=== PATIENT | male | born 1955 | race Caucasian/White ===

== ENCOUNTER 2024-12-17 10:46 | Outpatient (CLI) | payer MEDICARE, SELFPAY ==
--- OUTSIDE RECORDS SUMMARY | 2024-12-17 12:04 | XMS_ITS | Clinical Summary ---
Author Organization [facility] Address [address] [place] [address] Phone Care Team Providers Care Retail Loan Originator Name Role Phone Ace Dockery MD Primary Care Provider [phone] Allergies No known active allergies Medications pravastatin (PRAVACHOL) 40 MG Tablet Take 40 mg by mouth every evening. Active amLODIPine (NORVASC) 10 MG Tablet TAKE 1 TABLET BY MOUTH ONCE A DAY 30 Tab 6 6 Active hydroCHLOROthiaz efrain 25 MG Tablet TAKE ONE TABLET BY MOUTH ONCE DAILY 30 Tab 6 7 Active pravastatin (PRAVACHOL) 20 MG Tablet TAKE ONE TABLET BY MOUTH ONCE DAILY 30 Tab 5 7 Active Additional Information Patient not taking.Reported on 02/20/2018 glipiZIDE (GLUCOTROL) 10 MG Tablet Take 10 mg by mouth 2 times daily. 7 Active Blood Glucose Monitoring Suppl (TRUE METRIX METER) w/Device Kit 7 Active TRUE METRIX BLOOD GLUCOSE TEST Strip 7 Active RELION ULTRA THIN LANCETS 30G Misc 7 Active metFORMIN (GLUCOPHAGE-XR) 500 MG TABLET SR 24 HR Take 500 mg by mouth 2 times daily. 7 Active [place]-3 Fatty Acids (FISH OIL PO) Take 1 Tab by mouth daily. Active MAGNESIUM PO Take 1 Tab by mouth daily. Active HYDROcodone-acet aminophen (NORCO) 5-325 MG Tablet Take 1-2 Tabs by mouth every 6 hours as needed for Moderate or more severe pain. 40 Tab 8 Active ondansetron (ZOFRAN) 4 MG Tablet Take 1 Tab by mouth every 8 hours as needed for Nausea - 1st line. 10 Tab 8 Active ondansetron (ZOFRAN ODT) 4 MG TABLET DISPERSIBLE Take 1 Tab by mouth every 8 hours as needed for Nausea - 2nd line. 10 Tab 8 Active cyclobenzaprine (FLEXERIL) 5 MG Tablet 8 Active atorvastatin (LIPITOR) 40 MG Tablet 9 Active carvedilol (COREG) 25 MG Tablet 9 Active traMADol (ULTRAM) 50 MG Tablet Take 1 Tab by mouth every 8 hours as needed for Moderate or more severe pain. 20 Tab 9 Active JANUVIA 100 MG Tablet TAKE 1 TABLET BY MOUTH ONCE DAILY 0 Active acarbose (PRECOSE) 25 MG Tablet acarbose 25 mg tablet Active Active Problems Problem Noted Date Diagnosed Date Epidermoid cyst 07/23/2018 Skin tag 07/23/2018 SHAUNA (obstructive sleep apnea) 07/11/2018 Restless legs syndrome (RLS) 03/14/2018 Non morbid obesity 12/06/2017 SOB (shortness of breath) 12/06/2017 Pulmonary hypertension 12/06/2017 HTN (hypertension) Hyperlipidemia OA (osteoarthritis) Encounters Date Type Department Care Team Description 12/16/2024 8:30 AM CDT Physical Therapy [facility] [address], [address] [place] [phone] Ace Dockery MD Bogowith, Kelly A, PT Right shoulder pain, unspecified chronicity (Primary Dx) Discharge Disposition: Discharged to home or Selfcare 12/16/2024 Travel 12/13/[address] [facility] [address] [place] [phone] Shana Otto, PT Appointment 12/09/2024 11:30 AM CDT Physical Therapy [facility] [address] [place] [phone] Ace Dockery MD Young, Susan E, PT Right shoulder pain, unspecified chronicity (Primary Dx); Abnormal posture; Pain in right rhomboid muscle; Shoulder pain, unspecified chronicity, unspecified laterality Discharge Disposition: Discharged to home or Selfcare 12/09/2024 Travel 12/05/2024 3:15 PM CDT Physical Therapy [facility] [address], [address] [address] Ace Dockery MD Young, Susan E, PT Right shoulder pain, unspecified chronicity (Primary Dx); Abnormal posture; Pain in right rhomboid muscle; Shoulder pain, unspecified chronicity, unspecified laterality Discharge Disposition: Discharged to home or Selfcare 12/05/2024 Travel 12/02/2024 3:15 PM CDT Physical Therapy [facility] at [address], [address] [phone] Ace Dockery MD Young, Susan E, PT Right shoulder pain, unspecified chronicity (Primary Dx); Abnormal posture; Pain in right rhomboid muscle; Shoulder pain, unspecified chronicity, unspecified laterality Discharge Disposition: Discharged to home or Selfcare 11/29/2024 2:45 PM CDT Physical Therapy [facility] at [address] [phone] Ace Dockery MD Young, Susan E, PT Right shoulder pain, unspecified chronicity (Primary Dx); Abnormal posture Discharge Disposition: Discharged to home or Selfcare 11/29/2024 Plan of Care Documentation [facility] [address], [address] [phone] 11/29/2024 Travel 11/26/2024 Transcribe Orders [facility] [address] [place] [address] Ace Dockery MD Right shoulder pain, unspecified chronicity (Primary Dx) from Last 3 Months Family History Medical History Relation Name Comments Hypertension Father Lung Cancer Father Hypertension Mother Hypertension Sister Hypothyroidism Sister Relation Name Status Comments Father Mother Alive Sister Social History Tobacco Use Types Packs/Day Years Used Date Smoking Tobacco: Former Cigarettes 0.3 20 Cigars Smokeless Tobacco: Never Tobacco Cessation:Counseling Given: No Alcohol Use Standard Drinks/Week Comments Yes 12 (1 standard drink = 0.6 oz pu re alcohol) 3-4 drinks per evening Sexually Active Control Partners Comments Not Currently Sex and Gender Information Value Date Recorded Sex Assigned at Not on file Legal Sex Male 8:50 PM CDT Gender Identity Not on file Sexual Orientation Not on file Last Filed Vital Signs Vital Sign Reading Time Taken Comments Blood Pressure 166/92 05/26/2021 3:23 PM CDT Pulse 85 05/26/2021 3:23 PM CDT Temperature 36.4 C (97.6 F) 05/26/2021 3:23 PM CDT Respiratory Rate 18 05/26/2021 3:23 PM CDT Oxygen Saturation 99% 05/26/2021 3:23 PM CDT Inhaled Oxygen Concentration - - Weight 98.8 kg (217 lb 12.8 oz) 05/26/2021 3:23 PM CDT Height 179.1 cm (5' 10.5 ) 05/26/2021 3:23 PM CD T Body Mass Index 30.81 05/26/2021 3:23 PM CDT Plan of Treatment Upcoming Encounters Date Type Department Care Team (Late st Contact Info) Description 12/18/2024 9:15 AM CDT Physical Therapy [facility] [address] [place] [phone] Ace Dockery MD [address] [place] [address] [address] [place] [address] Francisca Snow, PT [place] 12/26/2024 11:30 AM CDT Physical Therapy [facility] [address] [place] [phone] Ace Dockery MD [address] [place] [address] [address] [place] [address] Shana Otto, PT [place] Discharge Disposition: Discharged to home or Selfcare Health Maintenance Due Date Last Done Comments Hepatitis C Virus (HCV) Screening 1955 Cologuard 02/02/2006 Immunochemical Fecal Occult Blood 02/02/2006 Pneumococcal Immunization (50+ years) (1 of 1 - PCV) 02/02/2006 Zoster Immunization (1 of 2) 02/02/2006 PSA Discussion 02/02/2011 Colonoscopy 03/05/2021 03/05/2018, 02/2018, 11/21/2017, Additional history exists Colorectal Cancer Screening 03/05/2021 Influenza Immunization (#1) 2024 SARS-COV-2 Immunization ( season) 2024 11/09/2021, 10/12/2021 Respiratory Syncytial Virus (RSV) Immunization (Adult) (1 - 1-dose 75+ series) 02/02/2031 03/05/2018, 02/2018, 11/21/2017, Additional history exists TdaP Immunization Completed 12/28/2012, 09/18/2012 Hepatitis B Immunization Aged Out No longer eligible based on patient's age to complete this topic Meningococcal Immunization (ACWY) Aged Out No longer eligible based on patient's age to complete this topic Rotavirus Immunization Aged Out No lo nger eligible based on patient's age to complete this topic Insurance MEDICARE Care Teams Retail Loan Originator Relationship Specialty Start Date End Date Ace Dockery MD [address] [place] [address] PCP - General Family Medicine 05/06/20
--- OUTSIDE RECORDS SUMMARY | 2024-12-17 12:04 | XMS_ITS | Clinical Summary ---
Author Organization [facility] Facility Address [address] [place] [id number] Care Team Providers Care Burial Vault Setter Name Role Phone Unavailable Primary Care Provider Unavailabl e Medications benazepril (LOTENSIN) 40 MG tablet TAKE 1 TABLET BY MOUTH ONCE DAILY 30 tablet 5 07/05/2019 Active carvedilol (COREG) 25 MG tablet Take 1 tablet by mouth twice daily 60 tablet 06/02/2021 Active Family History Medical History Relation Comments Cancer Child Cancer Father 2 Hypertension Father 2 Hypertension Mother 2 Hypertension Sibling Relation Status Comments Child Father 1 Father 2 Mother 1 Alive Mother 2 Sibling Social History Tobacco Use Types Packs/Day Years Used Date Smoking Tobacco: Former Alcohol Use Standard Drinks/Week Comments Yes 0 (1 standard drink = 0.6 oz pur e alcohol) Sex and Gender Information Value Date Recorded Sex Assigned at Not on file Legal Sex Male 6:09 PM EDT Gender Identity Not on file Sexual Orientation Not on file Last Filed Vital Signs Vital Sign Reading Time Taken Comments Blood Pressure 164/98 07/26/2018 11:00 AM MOLD CLEANER Pulse 93 07/26/2018 11:00 AM MOLD CLEANER Temperature - - Respiratory Rate 16 06/11/2018 11:00 AM CDT Oxygen Saturation 99% 07/26/2018 11:00 AM MOLD CLEANER Inhaled Oxygen Concentration - - Weight 101 kg (222 lb 8 oz) 07/26/2018 11:00 AM MOLD CLEANER Height 180.3 cm (5' 11 ) 07/26/2018 11:00 AM MOLD CLEANER Body Mass Index 31.03 07/26/2018 11:00 AM MOLD CLEANER Plan of Treatment Health Maintenance Due Date Last Done Comments Pneumococcal Vaccine: 65+ Ye ars (1 of 2 - PCV) 02[birth year]02/1961 Colorectal Cancer Screening: Annual FOBT 02/02/2005 Colorectal Cancer Screening: Colonoscopy 02/02/2005 Colorectal Cancer Screening: Sigmoidoscopy 02/02/2005 Diabetes: Hemoglobin A1C 12/08/2019 Diabetes: Ophthalmology Exam 12/08/2019 Diabetes: Pedal Pulse Checked 12/08/2019 Diabetes: Sensory Foot Exam 12/08/2019 Diabetes: Visual Foot Exam 12/08/2019 Influenza Vaccine (#1) 2024 Hepatitis B Vaccine Aged Out No longe r eligible based on patient's age to complete this topic
--- OUTSIDE RECORDS SUMMARY | 2024-12-17 12:04 | XMS_ITS | Data Portability ---
Author Organization [facility] Address [address] [facility] [place] [address] Care Team Providers Care Freelance Court Reporter Name Role Phone ACE MATHIS Primary Care Provider [facility] [address] Court Reporter Assessment Encounter Date Assessment Date Assessment LastModified by Organization Details LastModified Time 04/18/2024 04/18/2024 Due to increased blood pressure, spironolactone is now increased from 25 mg once daily to 25 mg BID. [email or web address] Not available 04/22/2024 23:06:35 08/21/2024 08/21/2024 There remains great confusion as to which medications pt truly has and is taking. He was recommended to RTC with all his medications in tote. [email or web address] Not available 08/24/2024 21:25:36 08/29/2024 08/29/2024 BP is elevated because pt has not yet restarted the spironolactone already rx'd. He states that he will obtain it today from his pharmacy. [email or web address] Not available 09/03/2024 06:51:28 10/10/2024 10/10/2024 Oscar Zuleta is a 69 yr old male with a PMH of type 2 diabetes and hypertension who presents today for a follow-up appointment. His BP is within normal ranges at this visit at 122/80. He is compliant with his medications. [email or web address] Not available 10/10/2024 14:13:10 Plan of Treatment Reminders Order Date Submit Date Provider Last Modified By Organization Details Last Modified Time Details Appointments None recorded. Lab surgical pathology study 2024 025 [facility], [address], [address], [place], [address], 5 13:24:19 CMP, serum or plasma 2024 025 [facility], [address], [address], [place], [address], 5 10:13:09 CBC w/ auto diff 2024 025 [facility], [address], [address], [place], [address], 5 10:13:12 lipid panel, serum 2024 025 [facility], [address], [address], [place], [address], 5 10:13:07 TSH, ultra-sensi tive, serum 2024 025 [facility], [address], [address], [place], [address], 5 10:13:10 HbA1c (hemoglobin A1c), blood 2023 024 [email or web address] In-Office Order, Internal Use Only DO Not Attach Compendium DO Not Attach Compendium, Do Not Delete/merge, [id number] 4 16:08:10 Referral ophthalmolo gist referral 2024 025 [facility], [address] [place], [address], 5 08:12:57 Procedures excision, skin tag (PROC) 2024 025 [email or web address] Not available 5 13:48:02 Surgeries None recorded. Imaging None recorded. Medication Orders amlodipine 10 mg tablet 2024 025 [facility], [address], [place], [address], 5 14:19:05 carvedilol 25 mg tablet 2024 025 [facility], [address], [place], [address], 5 14:19:10 hydrochloro thiazide 25 mg tablet 2024 025 [facility]2182 [address] [facility], [address], [place], [address], 5 20:21:53 spironolact one 25 mg tablet 2024 025 [facility], [address], [place], [address], 5 14:19:09 spironolact one 25 mg tablet 2023 024 [facility], [address], [place], [address], 4 16:01:29 Bactrim DS 800 mg-160 mg tablet 2023 025 [facility], [address], [place], [address], 5 13:58:20 spironolact one 25 mg tablet 2023 024 [facility], [address], [place], [address], 4 17:17:28 spironolact one 25 mg tablet 2023 024 [facility], [address], [place], [address], 10:38:58 Patient TargetsNo targets recorded. Patient Instructions Encounter Date Encounter Id Patient Instructions Last Modified By Organization Details Last Modified Time 04/18/2024 [id number] A healthy lifestyle: care instructions [email or web address] Not available 04/18/2024 10:38:50 learning about high blood pressure [email or web address] Not available 04/18/2024 10:38:50 08/21/2024 [id number] learning about type 2 diabetes [email or web address] Not available 08/21/2024 17:19:09 type 2 diabetes: care instructions Not available 08/21/2024 17:19:09 reduced vision: care instructions [email or web address] Not available 08/21/2024 17:17:15 learning about high blood pressure [email or web address] Not available 08/21/2024 17:17:15 high blood pressure: care instructions [email or web address] Not available 08/21/2024 17:17:15 learning about high blood pressure [email or web address] Not available 08/21/2024 17:17:15 08/29/2024 [id number] learning about type 2 diabetes [email or web address] Not available 08/29/2024 16:02:50 type 2 diabetes: care instructions [email or web address] Not available 08/29/2024 16:02:50 10/10/2024 [id number] A healthy lifestyle: care instructions [email or web address] Not available 10/10/2024 14:17:10 learning about type 2 diabetes [email or web address] Not available 10/10/2024 14:19:42 type 2 diabetes: care instructions [email or web address] Not available 10/10/2024 14:19:42 learning about high blood pressure [email or web address] Not available 10/10/2024 14:17:10 skin lesions: care instructions Not available 10/10/2024 14:24:29 11/08/2024 [id number] I was present in the clinic to discuss this patient at the time of the visit. I agree with the documented assessment and plan Lubna Erazo MD [email or web address] Not available 11/08/2024 17:00:[address] Reporter Referral for Bilateral cataracts Referring Physician: Ace Mathis, Family Medicine, Encounter Date: 10/10/2024 Results Created Date Observation Date Name Description Value Unit Range Abnormal Flag Note LastModifiedBy Organization Detail LastModifiedTime 03/18/2003/18/2024 HbA1c (hemo globi n A1c), blood HbA1c 9.4 Not Available In-Office Order Internal Use Only DO Not Attach Compendium DO Not Attach Compendium, Do Not Delete/merge, [id number] 03/18/2024 16:56:16 08/29/2008/29/2024 HbA1c (hemo globi n A1c), blood HbA1c 7.2 Not Available In-Office Order Internal Use Only DO Not Attach Compendium DO Not Attach Compendium, Do Not Delete/merge, 08/29/2024 16:08:02 10/10/1910/11/2024 LIPID PANEL cholesterol, total 150 mg/dL 100-19 9 Not Available [facility] ([facility]) [address] [place], [address], 10/11/2024 10:13:07 10/10/19 25 10/11/2024 LIPID PANEL triglyceride s 307 mg/dL 0-149 above high normal Not Available [facility] ([facility]) [address] [place], [address], 10/11/2024 10:13:07 10/10/19 25 10/11/2024 LIPID PANEL HDL cholesterol 37 mg/dL >39 below low normal Not Available [facility] ([facility]) [address] [place], [address], 10/11/2024 10:13:07 10/10/19 25 10/11/2024 LIPID PANEL VLDL cholesterol kayleigh 49 mg/dL 5-40 above high normal Not Available [facility] ([facility]) [address] [place], [address], 10/11/2024 10:13:07 10/10/19 25 10/11/2024 LIPID PANEL LDL chol calc ([facility]) 64 mg/dL 0-99 Not Available [facility] ([facility]) [address] [place], [address], 10/11/2024 10:13:07 10/10/19 25 10/11/2024 COMP. METAB OLIC PANEL (14) glucose 150 mg/dL 70-99 above high normal Not Available [facility] ([facility]) [address] [place], [address], 10/11/2024 10:13:09 10/10/19 25 10/11/2024 COMP. METAB OLIC PANEL (14) BUN 63 mg/dL 8-27 above high normal Not Available [facility] ([facility]) [address] [place], [address], 10/11/2024 10:13:09 10/10/19 25 10/11/2024 COMP. METAB OLIC PANEL (14) creatinine 2.02 mg/dL 0.76-1 .27 above high normal Not Available [facility] ([facility]) [address] [place], [address], 10/11/2024 10:13:09 10/10/19 25 10/11/2024 COMP. METAB OLIC PANEL (14) eGFR 35 mL/mi n/1.7 3 >59 below low normal Not Available [facility] ([facility]) [address] [place], [address], 10/11/2024 10:13:09 10/10/19 25 10/11/2024 COMP. METAB OLIC PANEL (14) BUN/creatini ne ratio 31 10-24 above high normal Not Available [facility] ([facility]) [address] [place], [address], 10/11/2024 10:13:09 10/10/19 25 10/11/2024 COMP. METAB OLIC PANEL (14) sodium 135 mmol/ L 134-14 4 Not Available [facility] ([facility]) [address] [place], [address], 10/11/2024 10:13:09 10/10/19 25 10/11/2024 COMP. METAB OLIC PANEL (14) potassium 5.2 mmol/ L 3.5-5. 2 Not Available [facility] ([facility]) [address] [facility], [place], [address], 10/11/2024 10:13:09 10/10/19 25 10/11/2024 COMP. METAB OLIC PANEL (14) chloride 101 mmol/ L 96-106 Not Available [facility] ([facility]) [address] [place], [address], 10/11/2024 10:13:10/10/19 25 10/11/2024 COMP. METAB OLIC PANEL (14) carbon dioxide, total 17 mmol/ L 20-29 below low normal Not Available [facility] ([facility]) [address] [place], [address], 10/11/2024 10:13:09 10/10/19 25 10/11/2024 COMP. METAB OLIC PANEL (14) calcium 9.9 mg/dL 8.6-10 .2 Not Available [facility] ([facility]) [address] [place], [address], 10/11/2024 10:13:09 10/10/19 25 10/11/2024 COMP. METAB OLIC PANEL (14) protein, total 7.6 g/dL 6.0-8. 5 Not Available [facility] ([facility]) [address] [place], [address], 10/11/2024 10:13:09 10/10/19 25 10/11/2024 COMP. METAB OLIC PANEL (14) albumin 4.2 g/dL 3.9-4. 9 Not Available [facility] ([facility]) [address] [place], [address], 10/11/2024 10:13:09 10/10/19 25 10/11/2024 COMP. METAB OLIC PANEL (14) globulin, total 3.4 g/dL 1.5-4. 5 Not Available [facility] ([facility]) [address] [place], [address], 10/11/2024 10:13:09 10/10/19 25 10/11/2024 COMP. METAB OLIC PANEL (14) bilirubin, total 0.3 mg/dL 0.0-1. 2 Not Available [facility] ([facility]) [address] [place], [address], 10/11/2024 10:13:09 10/10/19 25 10/11/2024 COMP. METAB OLIC PANEL (14) alkaline phosphatase 87 IU/L 44-121 Not Available [facility] ([facility]) [address] [place], [address], 10/11/2024 10:13:09 10/10/19 25 10/11/2024 COMP. METAB OLIC PANEL (14) AST (SGOT) 10 IU/L 0-40 Not Available [facility] ([facility]) [address] [place], [address], 10/11/2024 10:13:09 10/10/19 25 10/11/2024 COMP. METAB OLIC PANEL (14) ALT (SGPT) 13 IU/L 0-44 Not Available [facility] ([facility]) [address] [place], [address], 10/11/2024 10:13:09 10/10/19 25 10/11/2024 TSH TSH 1.750 uIU/m L 0.450- 4.500 Not Available [facility] ([facility]) [address] [facility], [place], [address], 10/11/2024 10:13:10 10/10/19 25 10/11/2024 CBC WITH DIFFE RENTI AL/PL ATELE T WBC 9.3 x10e3 /uL 3.4-10 .8 Not Available [facility] ([facility]) [address] [facility], [place], [address], 10/11/2024 10:13:11 10/10/19 25 10/11/2024 CBC WITH DIFFE RENTI AL/PL ATELE T RBC 4.49 x10e6 /uL 4.14-5 .80 Not Available [facility] ([facility]) [address] [facility], [place], [address], 10/11/2024 10:13:11 10/10/19 25 10/11/2024 CBC WITH DIFFE RENTI AL/PL ATELE T hemoglobin 13.0 g/dL 13.0-1 7.7 Not Available [facility] ([facility]) [address] [facility], [place], [address], 10/11/2024 10:13:11 10/10/19 25 10/11/2024 CBC WITH DIFFE RENTI AL/PL ATELE T hematocrit 39.1 % 37.5-5 1.0 Not Available [facility] ([facility]) [address] [place], [address], 10/11/2024 10:13:11 10/10/19 25 10/11/2024 CBC WITH DIFFE RENTI AL/PL ATELE T MCV 87 fL 79-97 Not Available [facility] ([facility]) [address] [place], [address], 10/11/2024 10:13:11 10/10/19 25 10/11/2024 CBC WITH DIFFE RENTI AL/PL ATELE T MCH 29.0 pg 26.6-3 3.0 Not Available [facility] ([facility]) [address] [place], [address], 10/11/2024 10:13:11 10/10/19 25 10/11/2024 CBC WITH DIFFE RENTI AL/PL ATELE T MCHC 33.2 g/dL 31.5-3 5.7 Not Available [facility] ([facility]) [address] [facility], [place], [address], 10/11/2024 10:13:11 10/10/19 25 10/11/2024 CBC WITH DIFFE RENTI AL/PL ATELE T RDW 12.9 % 11.6-1 5.4 Not Available [facility] ([facility]) [address] [facility], [place], [address], 10/11/2024 10:13:11 10/10/19 25 10/11/2024 CBC WITH DIFFE RENTI AL/PL ATELE T platelets 255 x10e3 /uL 150-45 0 Not Available [facility] ([facility]) [address] [facility], [place], [address], 10/11/2024 10:13:11 10/10/19 25 10/11/2024 CBC WITH DIFFE RENTI AL/PL ATELE T neutrophils 63 % notest ab. Not Available [facility] ([facility]) [address] [facility], [place], [address], 10/11/2024 10:13:11 10/10/19 25 10/11/2024 CBC WITH DIFFE RENTI AL/PL ATELE T lymphs 26 % notest ab. Not Available [facility] ([facility]) [address] [facility], [place], [address], 10/11/2024 10:13:11 10/10/19 25 10/11/2024 CBC WITH DIFFE RENTI AL/PL ATELE T monocytes 8 % notest ab. Not Available [facility] ([facility]) [address] [place], [address], 10/11/2024 10:13:11 10/10/19 25 10/11/2024 CBC WITH DIFFE RENTI AL/PL ATELE T eos 2 % notest ab. Not Available [facility] ([facility]) [address] [place], [address], 10/11/2024 10:13:11 10/10/19 25 10/11/2024 CBC WITH DIFFE RENTI AL/PL ATELE T basos 1 % notest ab. Not Available [facility] ([facility]) [address] [facility], [place], [address], 10/11/2024 10:13:11 10/10/19 25 10/11/2024 CBC WITH DIFFE RENTI AL/PL ATELE T neutrophils (absolute) 5.8 x10e3 /uL 1.4-7. 0 Not Available [facility] ([facility]) [address] [facility], [place], [address], 10/11/2024 10:13:11 10/10/19 25 10/11/2024 CBC WITH DIFFE RENTI AL/PL ATELE T lymphs (absolute) 2.5 x10e3 /uL 0.7-3. 1 Not Available [facility] ([facility]) [address] [facility], [place], [address], 10/11/2024 10:13:11 10/10/19 25 10/11/2024 CBC WITH DIFFE RENTI AL/PL ATELE T monocytes(ab solute) 0.8 x10e3 /uL 0.1-0. 9 Not Available [facility] ([facility]) [address] [facility], [place], [address], 10/11/2024 10:13:11 10/10/19 25 10/11/2024 CBC WITH DIFFE RENTI AL/PL ATELE T eos (absolute) 0.2 x10e3 /uL 0.0-0. 4 Not Available [facility] ([facility]) [address] [facility], [place], [address], 10/11/2024 10:13:11 10/10/19 25 10/11/2024 CBC WITH DIFFE RENTI AL/PL ATELE T baso (absolute) 0.1 x10e3 /uL 0.0-0. 2 Not Available [facility] ([facility]) [address] [facility], [place], [address], 10/11/2024 10:13:11 10/10/19 25 10/11/2024 CBC WITH DIFFE RENTI AL/PL ATELE T immature granulocytes 0 % notest ab. Not Available [facility] ([facility]) [address] [facility], [place], [address], 10/11/2024 10:13:11 10/10/19 25 10/11/2024 CBC WITH DIFFE RENTI AL/PL ATELE T immature grans (abs) 0.0 x10e3 /uL 0.0-0. 1 Not Available [facility] ([facility]) [address] [facility], [place], [address], 10/11/2024 10:13:11 11/08/19 25 11/14/2024 PATHO LOGY REPOR T . COMMEN T Mater ial submi tted: . PART A: thigh - LEFT MEDIA L THIGH . Modif iers: left, media l PART B: thigh - LEFT MEDIA L THIGH . Modif iers: left, media l PART C: thigh - LEFT MEDIA L THIGH . Modif iers: left, media l Not Available [facility] ([facility]) [address] [facility], [place], [address], 11/14/2024 13:24:19 11/08/1911/14/2024 PATHO LOGY REPOR T . COMMEN T Clini ngoc provi ded ICD-1 0: L91.8 Not Available [facility] ([facility]) [address] [facility], [place], [address], 11/14/2024 13:24:19 11/08/19 25 11/14/2024 PATHO LOGY REPOR T . COMMEN T Diagn osis: A. IRRIT ATED FIBRO EPITH ELIAL POLYP . B. IRRIT ATED FIBRO EPITH ELIAL POLYP . C. IRRIT ATED FIBRO EPITH ELIAL POLYP . BXS 11/14 1023 Local Not Available [facility] ([facility]) [address] [place], [address], 11/14/2024 13:24:19 11/08/19 25 11/14/2024 PATHO LOGY REPOR T . COMMEN T Winter rodriguez d: . El cao MD, [place] topat holog ist Not Available [facility] ([facility]) [address] [place], [address], 11/14/2024 13:24:19 11/08/19 25 11/14/2024 PATHO LOGY REPOR T . COMMEN T Gross descr iptio n: . 3 Conta iners , forma pema-f illed , label ed with patie nt ident ifica tion. Part A: LEFT MEDIA L THIGH : RECEI ANNAMARIE IS 1 FRAGM ENT(S ) OF WRINK LED POLYP OID BROWN SKIN TISSU E MEASU RING 0.5 X 0.4 X 0.[address]GI [facility] [facility] N IS INKED BLUE. THE SPECI MEN IS SUBMI TTED INTAC T AND SUBMI TTED IN CASSE TTE(S ) A1. Part B: LEFT MEDIA L THIGH : RECEI ANNAMARIE IS 1 FRAGM ENT(S ) OF WRINK LED POLYP OID CORNELIUS SKIN TISSU E MEASU RING 0.4 X 0.4 X 0.[address] THE [address]GI [facility] [facility] N IS INKED GREEN . THE SPECI MEN IS SUBMI TTED INTAC T AND SUBMI TTED IN CASSE TTE(S ) B1. Part C: LEFT MEDIA L THIGH : RECEI ANNAMARIE IS 1 FRAGM ENT(S ) OF WRINK LED POLYP OID CORNELIUS SKIN TISSU E MEASU RING 0.8 X 0.4 X 1.[address]GI [facility] [facility] N IS INKED BLUE. THE SPECI MEN IS BISEC ALAN AND SUBMI TTED IN CASSE TTE(S ) C1. ORT/O RT 11/12 1128 Local Not Available [facility] ([facility]) [address] [facility], [place], [address], 11/14/2024 13:24:19 11/08/19 25 11/14/2024 PATHO LOGY REPOR T . COMMEN T Patho logis t provi ded ICD-1 0: L91.9 Not Available [facility] ([facility]) [address] [facility], [place], [address], 11/14/2024 13:24:19 11/08/19 25 11/14/2024 PATHO LOGY REPOR T . COMMEN T CPT . 83697 1, 78885 2, 99192 3 Not Available [facility] ([facility]) [address] [facility], [place], [address], 11/14/2024 13:24:19 12/18/19 25 12/17/2024 imagi ng/di agnos tic resul t No observ ation record ed. [facility] [address] [place] [address], [address], 12/17/2024 12:50:19 Result Notes None recorded. Problems Name Problem SNOMED Code Status Onset Date Resolution Date Notes Provider Name and Address Organization Details Recorded Time Body mass index 25-29 - overweig 875709357 Active 2016 Francheska corado [facility] 7 00:19:59 Proteinu maria e 53666749 Active 2016 Nephro [facility] 8 01:46:07 Dizzy nereydalls 648512577 Completed 201612/08/2017 Roma corado, [place] - [facility] 8 16:41:16 Injury of shoulder region 036000303 Active 2017 Francheska [place]ado[place] [facility] 8 17:23:56 Strain of trapeziu s muscle 742029325 Completed 201702/19/2018 Franc[place] [facility] 8 07:35:57 Rotator cuff syndrome 0003476 Active 2017 Franc[place] [facility] 8 01:26:33 Pulmonar y hyperten juan manuel 99616055 Active 2017 Franches[place] [facility] 8 01:53:58 Bunion 748457136 Active 2017 Franc[place] [facility] 8 07:35:29 Pre-surg marcus testing Active 2017 Franc[place] [facility] 8 12:17:17 Adult health examinat ion Active 2017 Franc[place] [facility] 8 10:54:33 Cellulit is of finger of right hand 47765196992 228335 Completed 201809/19/2019 Franc[place] [facility] 0 09:44:04 Dog bite - wound 598901177 Completed 201809/19/2019 Francheska Bonds [place] [facility] 0 09:37:27 Conducti ve hearing loss 42025434 Active 2019 Franches[place] [facility] 0 09:41:45 Cellulit is of finger 67781063 Completed 201606/15/2017 [place] [facility] 7 22:44:51 Tubercul osis screenin g Completed 201606/15/2017 Franches[place] [facility] 06/15/201 7 22:44:47 Unexplai kalee weight loss 022656327 Completed 201608/15/2017 Removal Reason: DM Francheska corado, [place] - [facility] 7 00:18:55 Type 2 diabetes mellitus 87659971 Active 2016 neg retinopa hty. Has cataract Francheska corado, [facility] 8 01:27:18 Hypertri glycerid emia 903306385 Active 2016 Francheska corado, [place] [facility] 7 14:22:07 Foot joint pain 846507636 Completed 201608/15/2017 Removal Reason: resolved , med side effect Francheska corado, [facility] 7 00:19:06 Blurring of visual image 655877031 Completed 201612/10/2017 Saw eye doc - wnl. Francheska corado, [place] - [facility] 8 01:45:53 Essentia l hyperten juan manuel 94524611 Active 2016 Francheska corado, [place] [facility] 7 22:45:38 Problem Notes None recorded. Procedures Surgical History Date Name Laterality Status Provider Name and Address Organization Details Recorded Time Skin Tag Removal completed JARRED HEREDIA MD Attn: Accounting,[address] [place] [address], [id number], [facility] - [facility] 11/08/2024 15:46:20 8 Colonoscopy with biopsy completed Francheska Bonds [place] - [facility] 12/10/2017 01:48:33 Unlisted procedure shoulder completed India Villa [place] - [facility] 04/14/2020 10:41:37 Unlisted px foot/toes completed India Villa [place] - [facility] 04/14/2020 10:42:33 Imaging Results Imaging Date Name Status LastModified by [facility] Details LastModified Time 12/17/2024 imaging/diagn ostic result active [facility] [address] [place], [address], 12/17/2024 12:50:19 Procedure Notes None recorded. Medical Equipment None Reported. Allergies No known drug allergies Medications Name Sig Start Date Stop Date Status Note LastModified by Organization Details LastModified Time drug unknown 12/10 completed Not Available Not Available Not Available atorvasta tin 40 mg tablet TAKE 1 TABLET BY MOUTH ONCE DAILY 08/29 completed Not Available Not Available Not Available metformin 500 mg tablet Take 1 tablet twice a day by oral route with meals for 90 days. 10/16 completed on hold from ER Not Available Not Available Not Available carvedilo l 25 mg tablet Take 1 tablet twice a day by oral route for 90 days. 2024 active Not Available Not Available Not Avai lable carvedilo l 6.25 mg tablet 07/31 completed Not Available Not Available Not Available atorvasta tin 20 mg tablet Take 1 tablet every day by oral route. 11/02 completed Not Available Not Available Not Available carvedilo l 12.5 mg tablet 11/01 completed Not Available Not Available Not Available pravastat in 40 mg tablet Take 1 tablet every day by oral route as directed . 08/01 completed changed to Lipitor Not Available Not Available Not Available hydrocodo ne 5 mg-acetam inophen 325 mg tablet 05/14 completed Not Available Not Available Not Available glipizide ER 10 mg tablet, extended release 24 hr TAKE 2 TABLETS BY MOUTH ONCE DAILY active Not Available Not Available No t Available meloxicam 15 mg tablet TAKE 1 TABLET BY MOUTH ONCE DAILY FOR 15 DAYS 10/16 completed Not Available Not Available Not Available glipizide 10 mg tablet TAKE 2 TABLETS BY MOUTH TWICE DAILY BEFORE MEALS active Not Available Not Available No t Available prednison e 20 mg tablet Take 1 tablet every day by oral route. 05/14 completed Not Available Not Available Not Available Tubersol 5 tub. unit/0.1 mL intraderm al injection solution Administ er .1ml interder samir 06/15 completed placed in l forearm pt rtc in 48 hours to have read Not Available Not Available Not Available metformin 850 mg tablet Take 1 tablet 3 times a day by oral route with meals. 08/15 completed Not Available Not Available Not Available clindamyc in HCl 150 mg capsule 05/14 completed Not Available Not Available Not Available Tylenol Arthritis Pain 650 mg tablet,ex tended release Take 1 tablet every 8 hours by oral route as needed. 2017 active <2g per day Not Available Not Available Not Available acetamino phen 300 mg-codein e 30 mg tablet TAKE 1 TABLET BY MOUTH TWICE DAILY NEEDED FOR 15 DAYS active Not Available Not Available No t Available amlodipin e 5 mg tablet TAKE 1 TABLET BY MOUTH ONCE DAILY 08/23 completed Not Available Not Available Not Available sulfameth oxazole 800 mg-trimet hoprim 160 mg tablet Take 1 tablet twice a day by oral route for 14 days. 10/10 completed Not Available Not Available Not Available tramadol 50 mg tablet TAKE 1 TO 2 TABLETS BY MOUTH EVERY 6 HOURS NEEDED FOR ACUTE PAIN 02/21 completed Not Available Not Available Not Available sildenafi l 100 mg tablet TAKE 1 TABLET BY MOUTH NEEDED IN THE EVENING active Not Available Not Available No t Available spironola ctone 25 mg tablet Take 1 tablet twice a day by oral route for 90 days. 2024 active Not Available Not Available Not Avai lable meloxicam 7.5 mg tablet Take 1 tablet every day by oral route as needed for 14 days. 08/29 completed Not Available Not Available Not Available amlodipin e 10 mg tablet Take 1 tablet every day by oral route for 90 days. 2024 active Not Available Not Available Not Avai lable benzonata te 100 mg capsule TAKE 1 CAPSULE BY MOUTH THREE TIMES DAILY NEEDED FOR 10 DAYS 08/21 completed Not Available Not Available Not Available doxycycli ne monohydra te 100 mg capsule TAKE 1 CAPSULE BY MOUTH TWICE DAILY FOR 10 DAYS active Not Available Not Available No t Available cephalexi n 500 mg capsule 06/15 completed Not Available Not Available Not Available aspirin 81 mg chewable tablet Chew 1 tablet every day by oral route. active Not Available Not Available No t Available benazepri l 20 mg tablet TAKE 1 TABLET BY MOUTH ONCE DAILY 07/31 completed Increase d to 40 mg daily - Dr Arizmendi [neprho] Not Available Not Available Not Available pravastat in 20 mg tablet 06/15 completed Not Available Not Available Not Available hydrochlo rothiazid e 25 mg tablet Take 1 tablet by mouth once daily for 90 days 2024 active on hold from ER Not Available Not Available Not Available benazepri l 40 mg tablet TAKE 1 TABLET BY MOUTH DAILY 08/29 completed Not Available Not Available Not Available albuterol sulfate HFA 90 mcg/actua tion aerosol inhaler INHALE 2 PUFFS BY MOUTH 4 TIMES DAILY NEEDED active Not Available Not Available No t Available Vitamin D2 1,250 mcg (50,000 unit) capsule Take 1 capsule every week by oral route. 2022 active PRN Not Available Not Available Not Avai lable ondansetr on 4 mg disintegr ating tablet 01/21 completed Not Available Not Available Not Available metformin ER 500 mg tablet,ex tended release 24 hr TAKE 2 TABLETS BY MOUTH ONCE DAILY IN THE EVENING 11/02 completed Not Available Not Available Not Available amoxicill in 875 mg-potass ium clavulana te 125 mg tablet Take 1 tablet every 12 hours by oral route for 10 days. 05/14 completed Not Available Not Available Not Available acarbose 25 mg tablet Take 1 tablet 3 times a day by oral route for 90 days. active Not Available Not Available No t Available cyclobenz aprine 5 mg tablet TAKE 1 TABLET BY MOUTH THREE TIMES DAILY NEEDED active Not Available Not Available No t Available rosuvasta tin 20 mg tablet TAKE 1 TABLET BY MOUTH AT BEDTIME active Not Available Not Available No t Available metformin ER 1,000 mg tablet,ex tended release 24hr (osmotic) Take 2 tablets every day by oral route in the evening. 08/16 completed Not Available Not Available Not Available magnesium 08/29 completed OTC Not Available Not Available Not Available Vitamin D3 4000iu 08/21 completed daily-OK N Not Available Not Available Not Available metformin ER 500 mg 24 hr tablet,ex tended release (gastric retention ) Take 2 tablets every day by oral route in the evening. 11/02 completed Not Available Not Available Not Available Januvia 100 mg tablet TAKE 1 TABLET BY MOUTH ONCE DAILY FOR 90 DAYS 02/21 completed Not Available Not Available Not Available fenofibra te 54 mg tablet TAKE 1 TABLET BY MOUTH ONCE DAILY 07/26 completed Not Available Not Available Not Available glipizide ER 10 mg 24 hr tablet,ex tended release Take 2 tablets every day by oral route. 09/19 completed Not Available Not Available Not Available Tradjenta 5 mg tablet TAKE 1 TABLET BY MOUTH ONCE DAILY 06/05 completed Not Available Not Available Not Available OneTouch Verio test strips USE 1 STRIP TO CHECK GLUCOSE ONCE DAILY NEEDED active Not Available Not Available No t Available Invokana 300 mg tablet TAKE 1 TABLET BY MOUTH ONCE DAILY 02/25 completed Not Available Not Available Not Available Farxiga 10 mg tablet TAKE 1 TABLET BY MOUTH ONCE DAILY IN THE MORNING FOR 30 DAYS 07/26 completed Not Available Not Available Not Available Jardiance 10 mg tablet Take 1 tablet by mouth once daily active Not Available Not Available No t Available Fish Oil 1,000 mg (120 mg-180 mg) capsule Take by oral route. 03/18 completed OTC Not Available Not Available Not Available OneTouch Delica Plus Lancet 33 gauge USE TO CHECK GLUCOSE ONCE DAILY NEEDED active Not Available Not Available No t Available OneTouch Verio Reflect Meter active Not Available Not Available Not Available Ozempic 1 mg/dose (4 mg/3 mL) subcutane ous pen injector Inject 0.25 mg every week by subcutan eous route. 06/09 completed Not Available Not Available Not Available Ozempic 0.25 mg or 0.5 mg (2 mg/3 mL) subcutane ous pen injector INJECT 0.5 MG SUBCUTAN EOUSLY ONCE A WEEK active Not Available Not Available No t Available Vitals Date Recorded Body height Body mass index (BMI) Body weight Body temperature Oxygen saturation Oxygen saturation in Arterial blood by Pulse oximetry Respiratory rate Heart rate Systolic blood pressure Diastolic blood pressure Provider Name and Address Organization Details Last Updated DateTime 4 180.34 cm 29.1 kg/m2 75859.3 1 g 97.7 [degF] 97 % 97 % 16 /min 92 /min 180 mm[Hg] 119 mm[Hg] Francisca Roman MA [place] - [facility] 4 10:01:29 Date Recorded Body height Body mass index (BMI) Body weight Oxygen saturation Oxygen saturation in Arterial blood by Pulse oximetry Heart rate Respiratory rate Body temperature Systolic blood pressure Diastolic blood pressure Provider Name and Address Organization Details Last Updated DateTime 4 180.34 cm 28.3 kg/m2 13372.6 1 g 95 % 95 % 86 /min 18 /min 97.5 [degF] 151 mm[Hg] 101 mm[Hg] ERIK Moreland [facility] 4 16:57:28 Date Recorded Body height Body mass index (BMI) Body weight Oxygen saturation Oxygen saturation in Arterial blood by Pulse oximetry Heart rate Respiratory rate Body temperature Systolic blood pressure Diastolic blood pressure Provider Name and Address Organization Details Last Updated DateTime 4 180.34 cm 28.7 kg/m2 70240.8 9 g 97 % 97 % 85 /min 16 /min 97.3 [degF] 167 mm[Hg] 105 mm[Hg] India Villa MA [facility] 4 15:33:25 Date Recorded Body height Body mass index (BMI) Body weight Heart rate Respiratory rate Body temperature Systolic blood pressure Diastolic blood pressure Provider Name and Address Organization Details Last Updated DateTime 5 180.34 cm 28.9 kg/m2 20117.4 2 g 76 /min 16 /min 96 [degF] 122 mm[Hg] 80 mm[Hg] India Villa MA [facility] 5 14:02:38 Date Recorded Oxygen saturation Oxygen saturation in Arterial blood by Pulse oximetry Provider Name and Address Organization Details Last Updated DateTime 10/10/2024 92 % 92 % Ace Mathis MD Attn: Accounting,[address] [place], [address], [facility] 10/15/2024 10:32:56 Date Recorded Body height Body temperature Respiratory rate Heart rate Systolic blood pressure Diastolic blood pressure Provider Name and Address Organization Details Last Updated DateTime 5 180.34 cm 97.8 [degF] 16 /min 79 /min 165 mm[Hg] 99 mm[Hg] Ramez Hutchison MA [facility] 5 14:32:28 Social History Question Answer Notes LastModified by Organizat ion Details LastModified Time Tobacco Smoking Status Former Smoker Quit 2017 India Villa [place] null, [facility] 04/14/2020 10:39:40 Do You Have An Advance Directive? No Information not available 01/27/2021 What Is Your Level Of Alcohol Consumption? Heavy Every Day A Couple Of Cocktails None Since 08/11 [email or web address] Information not available 08/21/2024 How Many Years Have You Consumed Alcohol? 43 Information not available 01/27/2021 Are You Blind Or Do You Have Difficulty Seeing? Yes Glasses For Reading Information not available 01/27/2021 What Is Your Level Of Caffeine Consumption? Moderate 3 Cups Of Coffee 2 In The Morning And 1 In The Afternoon. Information not available 01/27/2021 In The 14 Days Before Symptom Onset, Have You Had Close Contact With A Laboratory-confi rmed COVID-19 While That Case Was Ill? No Information not available 01/27/2021 In The 14 Days Before Symptom Onset, Have You Had Close Contact With A Person Who Is Under Investigation For COVID-19 While That Person Was Ill? No Information not available 01/27/2021 Have You Been To An Area Known To Be High Risk For COVID-19? No Information not available 01/27/2021 Are You Currently Employed? Yes Information not available 01/27/2021 Are You Deaf Or Do You Have Serious Difficulty Hearing? Yes [facility]- Has Hearing Aids But Doen't Wear Them Information not available 01/27/2021 What Type Of Diet Are You Following? REGULAR Information not available 01/27/2021 Which Illicit Or Recreational Drugs Have You Used? Aby [email or web address] Information not available 05/11/2017 Do You Or Have You Ever Used E-cigarettes Or Vape? 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 Yes Information not available 01/27/2021 Do You Have A High School Diploma Or Higher Education? Yes Information not available 01/27/2021 Do You Sometimes Have To Miss Your Medical Appointments Due To Difficult Getting Transportation? No Information not available 01/27/2021 Do You Feel Unfairly Treated Due To Things Such As Race, Age, Gender, Disability Or Some Other Reason? No Information not available 01/27/2021 Do You Feel Physically And Emotionally Safe While Living At Home? Yes Information not available 01/27/2021 Do You Feel Physically And Emotionally Safe In Your Neighborhood Or Other Public Places? Yes Information not available 01/27/2021 What Was The Date Of Your Most Recent Tobacco Screening? 11/08/2024 Information not available 11/08/2024 How Many Children Do You Have? 2 Information not available 01/27/2021 What Is Your Current Pack Years? [email or web address] Information not available 01/27/2021 What Is Your Relationship Status? Single Information not available 01/27/2021 Do You Use Your Seat Belt Or Car Seat Routinely? Yes Information not available 01/27/2021 Are You Sexually Active? No Information not available 01/27/2021 Do You Have Smoke And Carbon Monoxide Detectors In Your Home? Yes Information not available 01/27/2021 At What Age Did You Start Smoking Tobacco? 21 Information not available 01/27/2021 Are You Passively Exposed To Smoke? No Information not available 01/27/2021 Do You Or Have You Ever Used Smokeless Tobacco? Never Used Smokeless Tobacco Information not available 04/14/2020 How Much Tobacco Do You Smoke? No Information not available 04/14/2020 Do You Feel Stressed (tense, Restless, Nervous, Or Anxious, Or Unable To Sleep At Night)? [id number] Information not available 01/27/2021 Do You Use Any Illicit Or Recreational Drugs? No Information not available 01/27/2021 Do You Use Sunscreen Routinely? No Information not available 01/27/2021 Has Tobacco Cessation Counseling Been Provided? No Information not available 10/10/2024 On What Date Was Tobacco Cessation Counseling Provided? 11/08/2024 Information not available 11/08/2024 Do You Or Have You Ever Used Any Other Forms Of Tobacco Or Nicotine? No Information not available 01/27/2021 Sex: Male Functional Status Question Answer Note LastModified by Organization D etails LastModified Time Are you able to care for yourself? Yes Information n ot available 01/27/2021 What is your exercise level? None Information not available 01/27/2021 Mental Status None recorded. Family History Relationship Description Onset Age of this Age Resolved Age Notes LastModified by Organization Details LastModified Time Mother Hypertensive disorder [email or web address] Not available 05/10 16:35:52 Mother Hypercholest [email or web address] Not available 05/10 16:36:21 Mother Malignant tumor of lung 90 Stage 1- Sep 2024 [email or web address] Not available 10/10/2024 14:06:02 Father Malignant tumor of lung [email or web address] Not available 2016 17:10:24 Sister Malignant tumor of ovary [email or web address] Not available 04/14 10:39:01 Notes:no new changes reporte d 01/27/21, 07/26/21, 10/12/21, 04/20/23, 06/08/23, 09/07/23, 04/03/24, 08/29/24, 11/08/24 Medical History No medical history recorded. Immunizations Vaccine Type Date Status Note Provider Nam e and Address Organization Details Recorded Time Tdap 12/28/2012 completed PROSEPR [place], [place] - [facility] 08/29/2024 08:56:18 Hep A, adult 12/28/2012 completed Francisca Romna MA null, [place] - [facility] 08/29/2024 08:56:18 COVID-19, mRNA, LNP-S, PF, 100 mcg/0.5mL dose or 50 mcg/0.25mL dose 10/12/2021 PROSPER Pat[place], [place] - [facility] 10/12/2021 16:52:00 COVID-19, mRNA, LNP-S, PF, 100 mcg/0.5mL dose or 50 mcg/0.25mL dose 11/09/2021 completed Laurita Naik MA [place], [place] - [facility] 11/09/2021 12:59:36 Tdap 09/18/2012 completed Dolly Arroyo MA [place], [place] - [facility] 05/10/2017 16:36:35 Past Encounters Encounter ID Performer Location Encounter Start Date Encounter Closed Date Diagnosis/Indication Diagnosis SNOMED-CT Code Diagnosis ICD10 Code Diagnosis Note [id number] Francheska Das ([facility]) [address] [place] [address] 05/10/2017 16:30:21 05/12/2017 10:39:21 Unexplained weight loss 364802152 R63.4 43 pounds in 5 months. I do not believe its the apple cedar. Patient never really had a PCP. Look for common malignancy , TB, DM. He did have random glucose in the 500's, 2 hours after a meal. Pt is compensati ng for the high glucose. We will wait for his A1C and blood cultures. ER if symptomati c, pt understood . Tuberculos is screening 756751821 Z11.1 TB skin test, hx of travel and hx of weight loss. Cellulitis of finger 275 60695 L03.012 Stop Keflex. Restart Bactrim. Advised on compliance . [id number] Francheska Das ([facility]) [address] [place] [address] 06/15/2017 16:24:34 06/19/2017 11:30:03 Foot joint pain 583814044 M79.672 Left first metatarsal . He is on HCTZ which is not favorable if he has gout. Exam unremarkab le today. We will check for uric acid level. Hypertriglyceridemia 302 299575 E78.1 We increased Pravastati n from 20mg daily to 40mg daily plus strict diet - he is trying to follow diabetes diet I recommende d as he declined nutritioni st referral. TG was 1100's, non-fastin g. Repeating lipid test today. Continue Pravastati n 40mg as tolerated. Type 2 layla betes mellitus 21001801 E11.29 05/23/2017: A1C of 16, UA showed trace protein, TSH wnl, CMP Na 132. Advise strict low carb/fat. 06/15/17: Pt is already on ACEI. Random glucose was 152 in clinic today. Has side effects from meds. We discussed about switching medication for less side effects, he elected to stay on the same regimen of Statin and Metformin as side effects are tolerable. He will cut down Glipizide to 20mg daily. Continue Metformin 850mg TID, Pravastati n 40mg (20mg if still has musculoske letal aches). Blurring o f visual image [id number] H53.8 Likely due to significan t drop in glucose. We are adjusting DM meds. Advised pt to have a dilated eye exam with eye doctor - he voiced understand ing. Unexplaine d weight loss 020143324 R63.4 43 pounds in 5 months. I do not believe its the apple cedar. Patient never really had a PCP. Look for common malignancy , TB, DM. He did have random glucose in the 500's, 2 hours after a meal. Pt is compensati ng for the high glucose. We will wait for his A1C and blood cultures. ER if symptomati c, pt understood . Addendum 05/23/2017 - likely due to undx diabetes. A1c of 16. HyperTG of 1158. Others wnl prelim blood cx, TSH, CMP (Na 132), CBC, UA (trace protein), PSA, CXR. Left voice mail for pt to call back to discuss about management . Essential hypertension 61115482 I10 Blood pressure wnl today. Continue same regimen. Consider cutting down Amlodipine next visit. [id number] [facility] ([facility]) [address] [place] [address] 08/15/2017 16:06:28 08/16/2017 10:53:20 Type 2 diabetes mellitus 95495453 E11.29 A1C = 16 on 05/19/2017 . Random glucose in clinic is 114 today, improved. Will switch metformin 850 TID to ER 2000mg daily. Continue glipizide 20 mg daily. We will check A1c today, Possible proteinuri a. Evaluate with microalbum inuria. Continue aspirin and statin. RTC in 1 mo. Advised patient began to see ophthalmol ogist. Body mass index 25-29 - overweight 043337597 Z68.28 continue weight gain, which could be due to his better controlled diabetes. Encouraged tighter lifestyle management . Hypertriglyceridemia 302 820832 E78.[address] referral. Triglyceri de improved from 1100 to 800 on pravastati n. Encourage patient to increase pravastati n to 40 mg total a day, add fish oil. We will check his triglyceri de today - Consider Fenofibrat e. Blurring o f visual image 559540867 H53.8 Likely due to significan t drop in glucose. We are adjusting DM meds. Advised pt to have a dilated eye exam with eye doctor - he voiced understand ing. 08/15/2017 : Advised pt again the importance of seeing eye doctor. Essential hypertension 61345550 I10 BP wnl. Continue Amlodipine , Benazepril , HCTZ. [id number] Francheska Freemanang [place] ([facility]) [address] [place] [address] 09/13/2017 16:18:41 09/19/2017 13:14:24 Type 2 diabetes mellitus 84382698 E11.29 A1C = 16 ( 7) improved to 7.2 on 08/15/2017 . Microalbum inuria pending nephrology . Pt is on Metformin ER 2000mg daily (we dec from 850mg TID). Continue aspirin and statin. Given pt glucometer to check his sugar as needed with dizzy spells. Consider lowering his Metformin (diarrhea) +/- inc Glipizide next visit. Dizzy spells 936063190 R 42 Hx suggests likely Vertigo vs. hypoglycem ia overnight. We will start with basic workup - anemia and electrolyt es. Neuro exam wnl, including cerebellum . Orthostati c neg. Urine dip: trace blood, protein 100. No ketone. Advised pt to measure his BP and glucose while feeling dizzy. Will order blood pressure kit and give him glucometer . He sitll hasn't seen eye doctor yet. Hypertriglyceridemia 302 096836 E78.[address] referral. Triglyceri de improved from 1100 to 800 on pravastati n. Pt is on Pravastati n 40mg with fish oil for one month. We will recheck TG level. Essential hypertension 77881893 I10 Blood pressure was uncontroll ed last nurse visit. Per pt, was feeling dizzy as well. BP wnl in clinic today. .Continue Amlodipine , Benazepril , HCTZ. Pt to measure BP when feeling dizzy. [id number] [facility] ([facility]) [address] [place] [address] 10/05/2017 16:35:13 10/10/2017 10:49:00 Hypertriglyceridemia 192862934 E78.1 Background : Declined nutritioni st referral. Triglyceri de improved from 1100 to 800 on pravastati n. Pt is on Pravastati n 40mg with fish oil for one month. We will recheck TG level. 10/05/2017 : TG improved to 597 in 09/13/2017 . Pt said he just started taking Pravastati n 40mg (from 20mg) about one week ago. He takes fish oil PRN, advised to take daily. We will repeat in 2-3 months. Dizzy spells 380047372 R 42 Hx suggests likely Vertigo vs. hypoglycem ia overnight. We will start with basic workup - anemia and electrolyt es. Neuro exam wnl, including cerebellum . Orthostati c neg. Urine dip: trace blood, protein 100. No ketone. Advised pt to measure his BP and glucose while feeling dizzy. Will order blood pressure kit and give him glucometer . He sitll hasn't seen eye doctor yet. 10/05/2017 : No further episodes. Still unsure etiology. Essential hypertension 61445600 I10 Blood pressure borderline . Continue Amlodipine , Benazepril , HCTZ. We will need to adjust med if BP continues to be borderline . Type 2 layla betes mellitus 19741702 E11.29 A1C = 16 ( 7) improved to 7.2 on 08/15/2017 . Microalbum inuria pending nephrology . Pt cut down to Metformin ER 500mg two tab daily. No further dizziness. Continue Glipizide 10mg 2 tab daily, Aspirin and statin. Recheck A1C 11/2017. [id number] Franc[facility] ([facility]) [address] [place] [address] 11/01/2017 16:08:38 11/09/2017 11:15:42 Injury of shoulder region 385850437 S49.92XA Less than a week. 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 Exam positive for impingemen t. We will start with conservati ve management - Flexeril And Tylenol. RTC if not better. Consider PT and imaging. Strain of trapezius muscle 399477686 S46.812A left sided. Flexeril to help with recovery. Francheska Das ([facility]) [address] [place] [address] 12/08/2017 16:06:57 12/11/2017 10:52:59 Type 2 diabetes mellitus 39998805 E11.29 A1C = 16 ( 7) improved to 7.2 on 08/15/2017 . Proteinuri a (Nephro). Eye wnl. 09/2017:Pt cut down to Metformin ER 500mg two tab daily. No further dizziness. Continue Glipizide 10mg 2 tab daily, Aspirin and statin. Recheck A1C 11/2017. 11/2017: Random glucose 150 today. Pt is not too sure if he is taking medication s as prescribed . Supposed to be on Glipizide 10mg two tab every day before meals, Metformin ER 500mg 2 tab daily. He will go home and check his med bottles. A1C printed out for him to do with his next blood test with Nephro. Essential hypertension 31313130 I10 Blood pressure borderline . Continue Amlodipine , Benazepril , HCTZ. We will need to adjust med if BP continues to be borderline . 11/2017: ACEI was supposed to be held 09/06/2017 due to SHAUN - was refilled later, not sure if pt is on it. Cr returned wnl 11/2017. Rotator cuff syndrome 41 15003 M75.102 10/2017: Less than a week. 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 Exam positive for impingemen t. We will start with conservati ve management - Flexeril And Tylenol. RTC if not better. Consider PT and imaging. 11/2017: Pain persists and affecting ADL's. Work involves mostly physical exertions. Repeat exam today - discomfort with impingemen t and also with abduction. We will start with XR shoulder and refer to PT. Hypertriglyceridemia 302 170325 E78.1 Background : Declined nutritioni st referral. Triglyceri de improved from 1100 to 800 on pravastati n. Pt is on Pravastati n 40mg with fish oil for one month. We will recheck TG level. 10/05/2017 : TG improved to 597 in 09/13/2017 . Pt said he just started taking Pravastati n 40mg (from 20mg) about one week ago. He takes fish oil PRN, advised to take daily. We will repeat in 2-3 months. 11/2017: He has not gotten fish oil. Will repeat lipid - printed out for his next blood test with Nephro. Pulmonary hypertension 21237905 I27.20 Followed by Pulmonary: Planning for PFT, CXR, ECHO, Sleep study [id number] Francheska Das 14 IM 4 [facility] [address] [place] [address] [place] [address] 02/15/2018 16:30:00 02/19/2018 10:57:13 Essential hypertension 34646690 I10 Blood pressure borderline . Continue Amlodipine , Benazepril , HCTZ. We will need to adjust med if BP continues to be borderline . 11/2017: ACEI was supposed to be held 09/06/2017 due to SHAUN - was refilled later, not sure if pt is on it. Cr returned wnl 11/2017. 01/2018: on Amlodipine , Benazepril , HCTZ 25mg. Will monitor. If persistent ly elevated, adjust meds. Bunion 229403296 M21.61 9 pain affecting ADL's. Refer to podiatry Impingemen t syndrome of shoulder region 392861797 M75.42 10/2017: Less than a week. 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 Exam positive for impingemen t. We will start with conservati ve management - Flexeril And Tylenol. RTC if not better. Consider PT and imaging. 11/2017: Pain persists and affecting ADL's. Work involves mostly physical exertions. Repeat exam today - discomfort with impingemen t and also with abduction. We will start with XR shoulder and refer to PT. 01/26/2018 : MRI left shoulder - moderate tendinosis of lateral supraspina tus and anterior infraspina tus with minimal interstiti al tearing of anterior infraspina tus. Full thickness chondromal acia along posterior glenoid with adjacent degenerati ve signal of posterior labrum. Moder OA of glenohumer al joint. OS acromial. Refer to Ortho. 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 Hypertriglyceridemia 302 991141 E78.1 Background : Declined nutritioni st referral. Triglyceri de improved from 1100 to 800 on pravastati n. Pt is on Pravastati n 40mg with fish oil for one month. We will recheck TG level. 10/05/2017 : TG improved to 597 in 09/13/2017 . Pt said he just started taking Pravastati n 40mg (from 20mg) about one week ago. He takes fish oil PRN, advised to take daily. We will repeat in 2-3 months. 11/2017: He has not gotten fish oil. Will repeat lipid - printed out for his next blood test with Nephro. 01/2018: only been on fish oil for two weeks. Pulmonary hypertension 36169658 I27.20 Followed by Pulmonary: Planning for PFT, CXR, ECHO ( Mild MVR / mild AVR, EF 60-65%, mild LVH. Mild diastolic dysfunctio n. Small pericardia l effusion), Sleep study 01/2018: Was put on CPAP, tolerating well. Sleep well. Type 2 layla betes mellitus [id number] E11.29 A1C = 16 ( 7) improved to 7.2 on 08/15/2017 . Proteinuri a (Nephro). Eye wnl. 09/2017:Pt cut down to Metformin ER 500mg two tab daily. No further dizziness. Continue Glipizide 10mg 2 tab daily, Aspirin and statin. Recheck A1C 11/2017. 11/2017: Random glucose 150 today. Pt is not too sure if he is taking medication s as prescribed . Supposed to be on Glipizide 10mg two tab every day before meals, Metformin ER 500mg 2 tab daily. He will go home and check his med bottles. A1C printed out for him to do with his next blood test with Nephro. 01/2018: A1C 6.7 - continue the same. [id number] Francheska Das 14 [address] [facility] [place] [address] 04/27/2018 09:26:59 05/09/2018 11:20:14 Essential hypertension 50237449 I10 Blood pressure borderline . Continue Amlodipine , Benazepril , HCTZ. We will need to adjust med if BP continues to be borderline . 11/2017: ACEI was supposed to be held 09/06/2017 due to SHAUN - was refilled later, not sure if pt is on it. Cr returned wnl 11/2017. 01/2018: on Amlodipine , Benazepril , HCTZ 25mg. Will monitor. If persistent ly elevated, adjust meds. 04/2018: BP borderline . Likely elevated due ot pain yesterday. Tramadol to help with post-op recovery. Continue Beazepril (inc from 20 to 40mg by Nephro), Amlodipine , HCTZ 25mg. Rotator cuff syndrome 41 76120 M75.102 10/2017: Less than a week. 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 Exam positive for impingemen t. We will start with conservati ve management - Flexeril And Tylenol. RTC if not better. Consider PT and imaging. 11/2017: Pain persists and affecting ADL's. Work involves mostly physical exertions. Repeat exam today - discomfort with impingemen t and also with abduction. We will start with XR shoulder and refer to PT. 01/26/2018 : MRI left shoulder - moderate tendinosis of lateral supraspina tus and anterior infraspina tus with minimal interstiti al tearing of anterior infraspina tus. Full thickness chondromal acia along posterior glenoid with adjacent degenerati ve signal of posterior labrum. Moder OA of glenohumer al joint. OS acromial. Refer to Ortho. 04/2018: s/p repair. Undergoing PT. Pain uncontroll ed - Tramadol. [id number] Paola Edwards ([facility]) [address] [facility] [place] [address] 06/13/2018 11:52:11 06/15/2018 10:25:01 Pyogenic granuloma 565099151 L98.0 vs atypia Skin tag [id number] L91.8 Inflamed [id number] Francheska Das 14 IM 4 [facility] [address] [place] [address] 07/31/2018 09:30:49 08/01/2018 13:51:35 Hypertriglyceridemia [id number] E78.1 Background : Declined nutritioni st referral. Triglyceri de improved from 1100 to 800 on pravastati n. Pt is on Pravastati n 40mg with fish oil for one month. We will recheck TG level. 10/05/2017 : TG improved to 597 in 09/13/2017 . Pt said he just started taking Pravastati n 40mg (from 20mg) about one week ago. He takes fish oil PRN, advised to take daily. We will repeat in 2-3 months. 11/2017: He has not gotten fish oil. Will repeat lipid - printed out for his next blood test with Nephro. 01/2018: only been on fish oil for two weeks. 07/2018: on Statin. Recheck level. Essential hypertension 75699342 I10 Blood pressure borderline . Continue Amlodipine , Benazepril , HCTZ. We will need to adjust med if BP continues to be borderline . 11/2017: ACEI was supposed to be held 09/06/2017 due to SHAUN - was refilled later, not sure if pt is on it. Cr returned wnl 11/2017. 01/2018: on Amlodipine , Benazepril , HCTZ 25mg. Will monitor. If persistent ly elevated, adjust meds. 04/2018: BP borderline . Likely elevated due ot pain yesterday. Tramadol to help with post-op recovery. Continue Beazepril (inc from 20 to 40mg by Nephro), Amlodipine , HCTZ 25mg. 07/2018: BP borderline . Nephro inc Benazepril from 20mg to 40mg, Carvedilol 6.15mg to 12.5mg. Continue the same. RTC 10/2018. Type 2 layla betes mellitus 30848269 E11.29 A1C = 16 ( 7) improved to 7.2 on 08/15/2017 . Proteinuri a (Nephro). Eye wnl. 09/2017:Pt cut down to Metformin ER 500mg two tab daily. No further dizziness. Continue Glipizide 10mg 2 tab daily, Aspirin and statin. Recheck A1C 11/2017. 11/2017: Random glucose 150 today. Pt is not too sure if he is taking medication s as prescribed . Supposed to be on Glipizide 10mg two tab every day before meals, Metformin ER 500mg 2 tab daily. He will go home and check his med bottles. A1C printed out for him to do with his next blood test with Nephro. 01/2018: A1C 6.7 - continue the same. 07/2018: . A1C was 6.2 in 05/2018. Nephro following proteinuri a. On Metformin ER 500mg 2 tab daily, Glipizide 10mg 2 tab daily Bunion [id number] M21.61 9 pain affecting ADL's. Gen sx left repaired 06/2018. Still hurting. Short term T3. Proteinuria 91486624 R80 .9 Followed by Nephro Adult heal th examination 660849130 Z00.00 Declined Flu [id number] Francheska Das 14 IM 4 [facility] [address] [place] [address] [address] 11/01/2018 09:22:10 11/01/2018 15:57:11 Hypertriglyceridemia 780384051 E78.1 Background : Declined nutritioni st referral. Triglyceri de improved from 1100 to 800 on pravastati n. Pt is on Pravastati n 40mg with fish oil for one month. We will recheck TG level. 10/05/2017 : TG improved to 597 in 09/13/2017 . Pt said he just started taking Pravastati n 40mg (from 20mg) about one week ago. He takes fish oil PRN, advised to take daily. We will repeat in 2-3 months. 11/2017: He has not gotten fish oil. Will repeat lipid - printed out for his next blood test with Nephro. 01/2018: only been on fish oil for two weeks. 07/2018: on Statin. Recheck level. Addendum: still not controlled . Switch to lipitor 20mg. Rotator cuff syndrome 41 97948 M75.102 10/2017: Less than a week. 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 Exam positive for impingemen t. We will start with conservati ve management - Flexeril And Tylenol. RTC if not better. Consider PT and imaging. 11/2017: Pain persists and affecting ADL's. Work involves mostly physical exertions. Repeat exam today - discomfort with impingemen t and also with abduction. We will start with XR shoulder and refer to PT. 01/26/2018 : MRI left shoulder - moderate tendinosis of lateral supraspina tus and anterior infraspina tus with minimal interstiti al tearing of anterior infraspina tus. Full thickness chondromal acia along posterior glenoid with adjacent degenerati ve signal of posterior labrum. Moder OA of glenohumer al joint. OS acromial. Refer to Ortho. 04/2018: s/p repair. Undergoing PT. Pain uncontroll ed - Tramadol. 05/2018: Undergoing PT. Wean down to T3. 10/2018: left shoulder worsening pain and limited ROM for past 2-3 weeks. No injuries. Steroid course. Call ortho if persist pain. Lyric 235300403 M21.61 9 pain affecting ADL's. Gen sx left repaired 06/2018. Still hurting. Short term T3. Addendum: pt will gen sx about right getting repaired. Type 2 layla betes mellitus 86948205 E11.29 A1C = 16 ( 7) improved to 7.2 on 08/15/2017 . Proteinuri a (Nephro). Eye wnl. 09/2017:Pt cut down to Metformin ER 500mg two tab daily. No further dizziness. Continue Glipizide 10mg 2 tab daily, Aspirin and statin. Recheck A1C 11/2017. 11/2017: Random glucose 150 today. Pt is not too sure if he is taking medication s as prescribed . Supposed to be on Glipizide 10mg two tab every day before meals, Metformin ER 500mg 2 tab daily. He will go home and check his med bottles. A1C printed out for him to do with his next blood test with Nephro. 01/2018: A1C 6.7 - continue the same. 07/2018: . A1C was 6.2 in 05/2018. Nephro following proteinuri a. On Metformin ER 500mg 2 tab daily, Glipizide 10mg 2 tab daily 10/2018: Pt has been on Glipizide 20mg daily and Metformin 1000mg q48hrs. (kidney concern). Check A1C today. Essential hypertension 95307887 I10 Blood pressure borderline . Continue Amlodipine , Benazepril , HCTZ. We will need to adjust med if BP continues to be borderline . 11/2017: ACEI was supposed to be held 09/06/2017 due to SHAUN - was refilled later, not sure if pt is on it. Cr returned wnl 11/2017. 01/2018: on Amlodipine , Benazepril , HCTZ 25mg. Will monitor. If persistent ly elevated, adjust meds. 04/2018: BP borderline . Likely elevated due ot pain yesterday. Tramadol to help with post-op recovery. Continue Beazepril (inc from 20 to 40mg by Nephro), Amlodipine , HCTZ 25mg. 07/2018: BP borderline . Nephro inc Benazepril from 20mg to 40mg, Carvedilol 6.15mg to 12.5mg. Continue the same. RTC 10/2018. 10/2018: BP wnl. Continue Carvedilol 25mg, Benazepril 40mg, Amlodipine 10mg, HCTZ 25mg. [id number] Francheska Das 14 IM 4 [facility] [place] [address] 12/25/2018 08:45:34 12/26/2018 10:20:33 Cellulitis of finger of right hand [id number] 3587001 L03.011 Right index - distal phalange only. Hot compress. ER if worsening. [id number] Francheska Das 14 IM 4 [facility] [place] [address] 02/20/2019 09:42:10 02/26/2019 10:22:50 Dog bite - wound [id number] T14.8XXA Monday. Neighbor's dog bit his right arm. Dog's vaccines uptodate. Dog was calm usually. Pt denies any AMS. 3 wounds appeared shallow and healed. Hx of repid worsening infection. Augmentin for ppx. Essential hypertension 37937402 I10 Blood pressure borderline . Continue Amlodipine , Benazepril , HCTZ. We will need to adjust med if BP continues to be borderline . 11/2017: ACEI was supposed to be held 09/06/2017 due to SHAUN - was refilled later, not sure if pt is on it. Cr returned wnl 11/2017. 01/2018: on Amlodipine , Benazepril , HCTZ 25mg. Will monitor. If persistent ly elevated, adjust meds. 04/2018: BP borderline . Likely elevated due ot pain yesterday. Tramadol to help with post-op recovery. Continue Beazepril (inc from 20 to 40mg by Nephro), Amlodipine , HCTZ 25mg. 07/2018: BP borderline . Nephro inc Benazepril from 20mg to 40mg, Carvedilol 6.15mg to 12.5mg. Continue the same. RTC 10/2018. 10/2018: BP wnl. Continue Carvedilol 25mg, Benazepril 40mg, Amlodipine 10mg, HCTZ 25mg. 02/2019: BP wnl today. Continue same meds. Type 2 layla marah mellitus 06293603 E11.29 A1C = 16 ( 7) improved to 7.2 on 08/15/2017 . Proteinuri a (Nephro). Eye wnl. 09/2017:Pt cut down to Metformin ER 500mg two tab daily. No further dizziness. Continue Glipizide 10mg 2 tab daily, Aspirin and statin. Recheck A1C 11/2017. 11/2017: Random glucose 150 today. Pt is not too sure if he is taking medication s as prescribed . Supposed to be on Glipizide 10mg two tab every day before meals, Metformin ER 500mg 2 tab daily. He will go home and check his med bottles. A1C printed out for him to do with his next blood test with Nephro. 01/2018: A1C 6.7 - continue the same. 07/2018: . A1C was 6.2 in 05/2018. Nephro following proteinuri a. On Metformin ER 500mg 2 tab daily, Glipizide 10mg 2 tab daily 10/2018: Pt has been on Glipizide 20mg daily and Metformin 1000mg q48hrs. (kidney concern). Check A1C today. 02/2019: Pt is taking Glipizide 20mg once daily (misunders mckenna quinonesio n). He is not not taking Metformin per nephrology 's caution on his kidneys. A1C first. Addendum: A1C 9.3 - worsening. Will inc Glipizde to 20mg BID and add Januvia for better control. Hypertriglyceridemia 302 285467 E78.1 Background : Declined nutritioni st referral. Triglyceri de improved from 1100 to 800 on pravastati n. Pt is on Pravastati n 40mg with fish oil for one month. We will recheck TG level. 10/05/2017 : TG improved to 597 in 09/13/2017 . Pt said he just started taking Pravastati n 40mg (from 20mg) about one week ago. He takes fish oil PRN, advised to take daily. We will repeat in 2-3 months. 11/2017: He has not gotten fish oil. Will repeat lipid - printed out for his next blood test with Nephro. 01/2018: only been on fish oil for two weeks. 07/2018: on Statin. Recheck level. Addendum: still not controlled . Switch to lipitor 20mg. 02/2019: Pt is currently on Lipitor 40mg.Adden dum: Lipid only slight improvemen t. Will add Fenofibrat e. [id number] Francheska Das 14 IM 4 [facility] [place] [address] 06/05/2019 09:29:13 06/17/2019 19:29:28 Type 2 diabetes mellitus 53170457 E11.29 A1C = 16 ( 7) improved to 7.2 on 08/15/2017 . Proteinuri a (Nephro). Eye wnl. 09/2017:Pt cut down to Metformin ER 500mg two tab daily. No further dizziness. Continue Glipizide 10mg 2 tab daily, Aspirin and statin. Recheck A1C 11/2017. 11/2017: Random glucose 150 today. Pt is not too sure if he is taking medication s as prescribed . Supposed to be on Glipizide 10mg two tab every day before meals, Metformin ER 500mg 2 tab daily. He will go home and check his med bottles. A1C printed out for him to do with his next blood test with Nephro. 01/2018: A1C 6.7 - continue the same. 07/2018: . A1C was 6.2 in 05/2018. Nephro following proteinuri a. On Metformin ER 500mg 2 tab daily, Glipizide 10mg 2 tab daily 10/2018: Pt has been on Glipizide 20mg daily and Metformin 1000mg q48hrs. (kidney concern). Check A1C today. 02/2019: pt is taking Glipizide 20mg once daily. Not taking Metformin. Inc glipizide to 20mg BID and add Januvia. Addendum: Januvia not covered. We can try Trajenta. 05/2019: Not sure if he is on tradjenta. He is taking Glipizide 10mg four tab once daily.Call pharmacy first to confirm his meds. Likely on Glipizide and Acarbose. Hypertriglyceridemia 302 604531 E78.1 Background : Declined nutritioni st referral. Triglyceri de improved from 1100 to 800 on pravastati n. Pt is on Pravastati n 40mg with fish oil for one month. We will recheck TG level. 10/05/2017 : TG improved to 597 in 09/13/2017 . Pt said he just started taking Pravastati n 40mg (from 20mg) about one week ago. He takes fish oil PRN, advised to take daily. We will repeat in 2-3 months. 11/2017: He has not gotten fish oil. Will repeat lipid - printed out for his next blood test with Nephro. 01/2018: only been on fish oil for two weeks. 07/2018: on Statin. Recheck level. Addendum: still not controlled . Switch to lipitor 20mg. 05/2019: On lipitor 40mgfish oilnot sure about fenofibrat e Body mass index 30+ - obesity 301803793 Z68.31 lifestyle [id number] Francheska Das 14 [address] [facility] [place] [address] 09/19/2019 08:56:10 09/20/2019 14:58:15 Hypertriglyceridemia 538036105 E78.1 Background : Declined nutritioni st referral. Triglyceri de improved from 1100 to 800 on pravastati n. Pt is on Pravastati n 40mg with fish oil for one month. We will recheck TG level. 10/05/2017 : TG improved to 597 in 09/13/2017 . Pt said he just started taking Pravastati n 40mg (from 20mg) about one week ago. He takes fish oil PRN, advised to take daily. We will repeat in 2-3 months. 11/2017: He has not gotten fish oil. Will repeat lipid - printed out for his next blood test with Nephro. 01/2018: only been on fish oil for two weeks. 07/2018: on Statin. Recheck level. Addendum: still not controlled . Switch to lipitor 20mg. 05/2019: On lipitor 40mgfish oilnot sure about fenofibrat e 09/2019: Has been on fish oil for years - once daily.On statin. Not picked up Fenofibrat e - advised to garbage pick up man and work on diet. Essential hypertension 30623671 I10 Blood pressure borderline . Continue Amlodipine , Benazepril , HCTZ. We will need to adjust med if BP continues to be borderline . 11/2017: ACEI was supposed to be held 09/06/2017 due to SHAUN - was refilled later, not sure if pt is on it. Cr returned wnl 11/2017. 01/2018: on Amlodipine , Benazepril , HCTZ 25mg. Will monitor. If persistent ly elevated, adjust meds. 04/2018: BP borderline . Likely elevated due ot pain yesterday. Tramadol to help with post-op recovery. Continue Beazepril (inc from 20 to 40mg by Nephro), Amlodipine , HCTZ 25mg. 07/2018: BP borderline . Nephro inc Benazepril from 20mg to 40mg, Carvedilol 6.15mg to 12.5mg. Continue the same. RTC 10/2018. 10/2018: BP wnl. Continue Carvedilol 25mg, Benazepril 40mg, Amlodipine 10mg, HCTZ 25mg. 02/2019: BP wnl today. Continue same meds. 09/2019: BP wnl, continue Benazepril , Carvedilol , Amlodipine , HCTZ. Bunion 069907351 M21.61 9 pain affecting ADL's. Gen sx left repaired 06/2018. Still hurting. Short term T3. Addendum: pt will gen sx about right getting repaired. 09/2019: Pt has to get his A1c < 8 to get surgery. Conductive hearing loss 30130119 H90.2 Saw ENT - conductive hearing loss, external ear / Acquired stenosis of both external ear canals, impacted cerumen b/l, tinnitus b/l Got hearing aid. Body mass index 25-29 - overweight 067868555 Z68.28 continue weight gain, which could be due to his better controlled diabetes. Encouraged tighter lifestyle management . Type 2 layla betes mellitus 02132874 E11.29 A1C = 16 (201 7) improved to 7.2 on 08/15/2017 . Proteinuri a (Nephro). Eye wnl. 09/2017:Pt cut down to Metformin ER 500mg two tab daily. No further dizziness. Continue Glipizide 10mg 2 tab daily, Aspirin and statin. Recheck A1C 11/2017. 11/2017: Random glucose 150 today. Pt is not too sure if he is taking medication s as prescribed . Supposed to be on Glipizide 10mg two tab every day before meals, Metformin ER 500mg 2 tab daily. He will go home and check his med bottles. A1C printed out for him to do with his next blood test with Nephro. 01/2018: A1C 6.7 - continue the same. 07/2018: . A1C was 6.2 in 05/2018. Nephro following proteinuri a. On Metformin ER 500mg 2 tab daily, Glipizide 10mg 2 tab daily 10/2018: Pt has been on Glipizide 20mg daily and Metformin 1000mg q48hrs. (kidney concern). Check A1C today. 02/2019: pt is taking Glipizide 20mg once daily. Not taking Metformin. Inc glipizide to 20mg BID and add Januvia. Addendum: Januvia not covered. We can try Trajenta. 05/2019: Not sure if he is on tradjenta. He is taking Glipizide 10mg four tab once daily.Call pharmacy first to confirm his meds. 09/2019: Likely on Glipizide and Acarbose based on refill. A1C 10.3 today, add Januvia. He will work on lifestyle changes - swimming. [id number] Francheska Das 14 IM [address] [facility] [address] [facility] [place] [address] 01/22/2020 08:27:45 01/23/2020 07:03:35 Adult health examination 220228560 Z00.00 Declined FluColonos copy 2018 - poor prep, small internal hemorrhoid s. Repeat in 3 years. Fiber, stool softeners Essential hypertension 58787144 I10 Blood pressure borderline . Continue Amlodipine , Benazepril , HCTZ. We will need to adjust med if BP continues to be borderline . 11/2017: ACEI was supposed to be held 09/06/2017 due to SHAUN - was refilled later, not sure if pt is on it. Cr returned wnl 11/2017. 01/2018: on Amlodipine , Benazepril , HCTZ 25mg. Will monitor. If persistent ly elevated, adjust meds. 04/2018: BP borderline . Likely elevated due ot pain yesterday. Tramadol to help with post-op recovery. Continue Beazepril (inc from 20 to 40mg by Nephro), Amlodipine , HCTZ 25mg. 07/2018: BP borderline . Nephro inc Benazepril from 20mg to 40mg, Carvedilol 6.15mg to 12.5mg. Continue the same. RTC 10/2018. 10/2018: BP wnl. Continue Carvedilol 25mg, Benazepril 40mg, Amlodipine 10mg, HCTZ 25mg. 02/2019: BP wnl today. Continue same meds. 09/2019: BP wnl, continue Benazepril , Carvedilol , Amlodipine , HCTZ. 01/2020: BP ok in 09/2019, continue the same. Type 2 layla betes mellitus 53668835 E11.29 A1C = 16 ( 7) improved to 7.2 on 08/15/2017 . Proteinuri a (Nephro). Eye wnl. 09/2017:Pt cut down to Metformin ER 500mg two tab daily. No further dizziness. Continue Glipizide 10mg 2 tab daily, Aspirin and statin. Recheck A1C 11/2017. 11/2017: Random glucose 150 today. Pt is not too sure if he is taking medication s as prescribed . Supposed to be on Glipizide 10mg two tab every day before meals, Metformin ER 500mg 2 tab daily. He will go home and check his med bottles. A1C printed out for him to do with his next blood test with Nephro. 01/2018: A1C 6.7 - continue the same. 07/2018: . A1C was 6.2 in 05/2018. Nephro following proteinuri a. On Metformin ER 500mg 2 tab daily, Glipizide 10mg 2 tab daily 10/2018: Pt has been on Glipizide 20mg daily and Metformin 1000mg q48hrs. (kidney concern). Check A1C today. 02/2019: pt is taking Glipizide 20mg once daily. Not taking Metformin. Inc glipizide to 20mg BID and add Januvia. Addendum: Januvia not covered. We can try Trajenta. 05/2019: Not sure if he is on tradjenta. He is taking Glipizide 10mg four tab once daily.Call pharmacy first to confirm his meds. 09/2019: Likely on Glipizide and Acarbose based on refill. A1C 10.3 today, add Januvia. He will work on lifestyle changes - swimming. 01/2020:A1 C was 7.7 in 11/2019 by [place] nurse per patient. Continue Glipizide, Acarbose, Januvia. Recheck A1C in 1mo. Pulmonary hypertension 75254060 I27.20 Followed by Pulmonary: Planning for PFT, CXR, ECHO (Mild MVR / mild AVR, EF 60-65%, mild LVH. Mild diastolic dysfunctio n. Small pericardia l effusion), Sleep study 01/2018: Was put on CPAP, tolerating well. Sleep well. Hypertriglyceridemia 302 889651 E78.1 Background : Declined nutritioni st referral. Triglyceri de improved from 1100 to 800 on pravastati n. Pt is on Pravastati n 40mg with fish oil for one month. We will recheck TG level. 10/05/2017 : TG improved to 597 in 09/13/2017 . Pt said he just started taking Pravastati n 40mg (from 20mg) about one week ago. He takes fish oil PRN, advised to take daily. We will repeat in 2-3 months. 11/2017: He has not gotten fish oil. Will repeat lipid - printed out for his next blood test with Nephro. 01/2018: only been on fish oil for two weeks. 07/2018: on Statin. Recheck level. Addendum: still not controlled . Switch to lipitor 20mg. 05/2019: On lipitor 40mgfish oilnot sure about fenofibrat e 09/2019: Has been on fish oil for years - once daily.On statin. Not picked up Fenofibrat e - advised to garbage pick up man and work on diet. 01/2020: Per refill history, he is taking fenofibrat e and statin. Bunion 868935451 M21.61 9 pain affecting ADL's. Gen sx left repaired 06/2018. Still hurting. Short term T3. Addendum: pt will gen sx about right getting repaired. 09/2019: Pt has to get his A1c < 8 to get surgery. 01/2020: A1C was 7.7 in 11/2019 by [place] nurse per patient. Pt will call podiatry for surgery Rotator cuff syndrome 41 93845 M75.102 10/2017: Less than a week. 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 Exam positive for impingemen t. We will start with conservati ve management - Flexeril And Tylenol. RTC if not better. Consider PT and imaging. 11/2017: Pain persists and affecting ADL's. Work involves mostly physical exertions. Repeat exam today - discomfort with impingemen t and also with abduction. We will start with XR shoulder and refer to PT. 01/26/2018 : MRI left shoulder - moderate tendinosis of lateral supraspina tus and anterior infraspina tus with minimal interstiti al tearing of anterior infraspina tus. Full thickness chondromal acia along posterior glenoid with adjacent degenerati ve signal of posterior labrum. Moder OA of glenohumer al joint. OS acromial. Refer to Ortho. 04/2018: s/p repair. Undergoing PT. Pain uncontroll ed - Tramadol. 05/2018: Undergoing PT. Wean down to T3. 10/2018: left shoulder worsening pain and limited ROM for past 2-3 weeks. No injuries. Steroid course. Call ortho if persist pain. [id number] MD Pippa Salas 14 IM 4 [facility] [address] [place] [address] 04/14/2020 08:51:13 04/16/2020 14:11:42 Type 2 diabetes mellitus 55024523 E11.9 recent HgbA1c was 10.8 on March 26, 2020 Essential hypertension 14940528 I10 Obesity 817854988 E66.9 Under care of customer service security officer [id number] Z76.[address] Arizmendi [id number] MD Pippa Salas 14 IM 4 [facility] [address] [place] [address] [address] 01/27/2021 10:50:00 01/29/2021 14:29:51 Pain in hallux 520193550 M79.671 Type 2 layla betes mellitus 93242384 E11.9 recent HgbA1c was 7.6 Lesion of skin of face [id number] 06 L98.9 Under care of customer service security officer [id number] Z76.[address] Arizmendi Screening for malignant neoplasm of colon 490837586 Z12.11 pt is due for another colonoscop y as of Obesity 377385827 E66.9 Essential hypertension 49793093 I10 [id number] MD Pippa Salas 14 IM 4 [facility] [place] [address] 07/26/2021 09:54:12 07/30/2021 13:59:58 Type 2 diabetes mellitus 59553505 E11.9 Essential hypertension 68275088 I10 Ex-smoker 1268288 Z87.89 1 Secondary erectile dysfunction 147842698 N52.39 [id number] MD Pippa Salas 14 IM 4 [facility] [place] [address] 10/12/2021 10:03:29 10/13/2021 13:47:54 Type 2 diabetes mellitus 67437454 E11.9 Pt had been forgetting to take the evening dose of metformin but now is improving. Insomnia 646430712 G47.0 0 Dyspnea 019341886 R06.00 Essential hypertension 83666252 I10 Vitamin D deficiency 347 29489 E55.9 Ex-smoker 9074962 Z87.89 1 more than six years ago now [id number] DASHAWN Calix 14 IM 4 [facility] [place] [address] 10/12/2021 10:06:41 10/13/2021 23:43:40 Administration of SARS-CoV-2 mRNA vaccine 7208936070 Z23 [id number] DASHAWN Calix 14 IM 4 [facility] [place] [address] 11/09/2021 11:08:59 11/10/2021 13:36:59 Administration of SARS-CoV-2 mRNA vaccine 9427399055 Z23 [id number] MD Pippa Salas 14 IM 4 [facility] [place] [address] 02/21/2022 15:05:57 02/22/2022 13:49:30 Type 2 diabetes mellitus without complication 199599063 E11.9 Rotator cuff syndrome 41 54557 M75.81 Essential hypertension 13087239 I10 [id number] MD Pippa Salas 14 IM 4 [facility] [place] [address] 04/20/2023 15:36:14 04/24/2023 12:44:50 Type 2 diabetes mellitus 08636835 E11.9 Noncomplia nce with treatment 1897781 Z91.199 Screening for malignant neoplasm of prostate 925298099 Z12.5 [id number] MD Pippa Salas 14 IM 4 [facility] [place] [address] 06/08/2023 14:55:54 06/09/2023 14:38:51 Overweight 133200929 E66.3 Type 2 layla betes mellitus 07652496 E11.9 Screening for malignant neoplasm of prostate 702193106 Z12.5 Essential hypertension 15580144 I10 [id number] MD Pippa Salas 14 IM 4 [facility] [place] [address] 09/07/2023 13:43:03 09/12/2023 08:54:18 Obesity 377671734 E66.9 Type 2 layla betes mellitus 24417045 E11.9 HgbA1c continues to improve! Vitamin D deficiency 347 20593 E55.9 Low back pain 518083629 M54.50 [id number] [facility] [place] [address] 03/18/2024 16:36:30 04/22/2024 13:04:43 Scapulalgia 04848425 M25.519 -Patient reports pain with flexion, extension, and abduction of right shoulder join. Spasticity of right trapezius noted on exam. -Patient has been taking 2 650mg tylenol and T#3 at the same time. Patient has also been taking cyclobenza isac 3 pills at once. 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 BATTERY VENT PLUG INSERTER advised patient to avoid any other NSAID therapy while on meloxicam. BATTERY VENT PLUG INSERTER discussed risks of NSAID therapy including gastritis, CKD, and hypertensi on.-Patien t agreeable to PT-Patient declined x ray of shoulder.- Patient to follow up with Dr. Mathis for further care.-BATTERY VENT PLUG INSERTER provided instructio nal handouts on shoulder pain to the patient. Type 2 layla betes mellitus 52916290 E11.9 -A1c: 9.4% (03/18/24)-P atient reports he has not been taking ozempic consistent ly. Patient reports he recently refilled.- Patient reports he is taking jardiance 10mg daily, glipizide ER 20mg daily-Ashleigh ent reports metformin is on hold.-Ashleigh ent declined adjustment in medication therapy.-P atient to follow up with Dr. Mathis April 03-Recom mended diabetic diet-Educa alan to check feet daily. [id number] MD Pippa Salas 14 IM 4 [facility] [place] [address] 04/03/2024 09:48:42 04/08/2024 11:34:30 Essential hypertension 55829932 I10 Scapulalgia 26681740 M25 .519 Type 2 layla betes mellitus 19496633 E11.9 Pt restarted ozempic in February 2024 [id number] MD Pippa Salas 14 IM 4 [facility] [place] [address] 04/18/2024 09:50:04 04/23/2024 10:38:53 Overweight 257829332 E66.3 Essential hypertension 60528597 I10 [id number] MD Pippa Salas 14 IM 4 [facility] [place] [address] 08/21/2024 16:37:24 08/27/2024 09:53:23 Essential hypertension 44653199 I10 Visual impairment 079977 003 H54.7 Benign ess ential hypertension 6708631 I10 Type 2 layla betes mellitus 03514303 E11.9 Pt restarted ozempic in February 2024 Pilonidal abscess 674444 008 L05.01 [id number] MD Pippa Salas 14 IM 4 [facility] [place] [address] 08/29/2024 15:05:50 09/04/2024 13:44:40 Benign essential hypertension 4318487 I10 Type 2 layla betes mellitus 30742626 E11.9 Pt restarted ozempic in February 2024; HgbA1c continues to improve, now at 7.2! [id number] MD Pippa Salas 14 IM 4 [facility] [place] [address] 10/10/2024 13:50:26 10/15/2024 14:21:42 Overweight 250729988 E66.3 BMI=28.9 Essential hypertension 69090414 I10 Type 2 layla betes mellitus 67025113 E11.9 Bilateral cataracts 9572 2003 H26.9 Skin lesion 89808279 L98 .9 [id number] MD Pippa Mcmahan 14 IM 4 [facility] [place] [address] 11/08/2024 14:12:41 11/11/2024 14:51:07 Multiple skin tags 669319496 L91.8 69 y/o male w/ 3 skin tags located on medial left thigh. Skin tags were excised and collected for pathology. No complicati ons during procedure. Plan: Follow up in 2 weeks to evaluate for healing and review pathology reports Health Concerns Section Related Observation LastModified by Organization Detai ls LastModified Time None Recorded Concern Status LastModified by Organization Details LastModified Time None Recorded Advance Directives Directive N: Payers Encounter Date Sequence Insurance Name Policy Number Policy Wheat Covered Member ID Wheat Member ID Guarantor Name 04/18/2024 2 [place] Piero Zuleta [id number] Piero [place] 08/29/2024 2 [place] Zuleta [id number] Piero [place] 10/10/2024 2 [place] Zuleta [id number] 9 Piero [place] 11/08/2024 2 [place] Zuleta [id number] 9 Piero [place]s Notes Date Note Type Note Provider Name and Address Organization Details Recorded Time 04/18/2024 text/html Pt presents for followup to elevated blood pressure. Ace Mathis MD Attn: Accounting,[address] [facility], [place], [address], [facility] 04/22/2024 23:07:46 08/21/2024 text/html Pt presents afte r a recent ER visit. He remains a poor historian, and it is not clear which medications he is taking. The ER physician gave him the recommendation to stop certain medications but that recommendation was based upon a patient list of medications that was not UTD. Ace Mathis MD Attn: Accounting,[address] [facility], [place], [address], [place] [facility] 08/24/2024 21:26:15 08/29/2024 text/html Per intake note, pt presents with the goal of clarifying which medications that he should take. Ace Mathis MD Attn: Accounting,[address] [facility], [place], [address], [facility] 09/03/2024 06:53:26 10/10/2024 text/html Oscar Zuleta is a 69 yr old male with a PMH of type 2 diabetes and hypertension who presents today for a follow-up appointment. His BP is within normal ranges at this visit at 122/80. He is compliant with his medications. Ace Mathis MD Attn: Accounting,[address] [facility], [place], [address], [facility] 10/15/2024 10:33:30 11/08/2024 text/html 69 y/o male w/ h x of skin tags on his medial left thigh and back of his neck. Today, the pt is unable to find the skin tag on the back of his neck. He reported using a home remedy for this lesion. He continues to have 3 skin tags on his left medial thigh. The lesions are not painful but the pt wants them removed for cosmetic concerns. Lubna Erazo MD Attn: Accounting,[address] [facility], [place], [address], [facility] 11/08/2024 17:05:42
--- OUTSIDE RECORDS SUMMARY | 2024-12-17 12:04 | XMS_ITS | Clinical Summary ---
Author Organization [facility] Address [address] [place] [address] Care Team Providers Care Graphic Arts Instructor Name Role Phone Ace Dockery MD Primary Care Provider [phone] Allergies No known active allergies Medications amLODIPine (NORVASC) 5 mg tabletIndication s:hypertension Take 1 tablet (5 mg total) by mouth daily 60 tablet 08/02/2024 Active Social History Tobacco Use Types Packs/Day Years Used Date Smoking Tobacco: Never Assessed Personal Safety Answer Date Recorded Have you ever been in or are you currently in a harmful physical or emotional relationship or is someone making you feel afraid or unsafe? Denies 08/02/2024 Sex and Gender Information Value Date Recorded Sex Assigned at Not on file Legal Sex Male 3:27 AM GRAIN UNLOADER MACHINE Gender Identity Not on file Sexual Orientation Not on file Last Filed Vital Signs Vital Sign Reading Time Taken Comments Blood Pressure 112/71 08/02/2024 10:45 PM GRAIN UNLOADER MACHINE Pulse 71 08/02/2024 10:45 PM GRAIN UNLOADER MACHINE Temperature 36.6 C (97.9 F) 08/02/2024 6:00 PM GRAIN UNLOADER MACHINE Respiratory Rate 16 08/02/2024 10:45 PM GRAIN UNLOADER MACHINE Oxygen Saturation 100% 08/02/2024 10:45 PM GRAIN UNLOADER MACHINE Inhaled Oxygen Concentration - - Weight 89.8 kg (198 lb) 08/02/2024 12:49 PM GRAIN UNLOADER MACHINE Height 180.3 cm (5' 11 ) 08/02/2024 12:49 PM GRAIN UNLOADER MACHINE Body Mass Index 27.62 08/02/2024 12:49 PM GRAIN UNLOADER MACHINE Plan of Treatment Health Maintenance Due Date Last Done Comments Colon Cancer Screening-Colonoscopy 1955 Depression Screening 1955 Fall Risk Assessment 1955 Hepatitis C Screening 1955 Hepatitis B Screening 02/02/1974 Pneumococcal vaccine 65+ (1 of 1 - PCV) 02/02/2006 Zoster Vaccine (1 of 2) 02/02/2006 Prostate Cancer Screening-PSA 05/19/2019 05/19/2017 Well Visit 65+ 02/02/2021 DTaP/Tdap/Td Vaccine (3 - Td or Tdap) 12/28/202208/2013, 09/18/2012 Covid-19 Vaccine (3 - season) 2024, 10/12/2021 Influenza Vaccine (#1) 2024 Abdominal Aortic Aneurysm (AAA) Screen Completed Procedures Procedure Name Priority Date/Time Associated Diagnosis Comments CT CHEST ABDOMEN PELVIS WO CONTRAST ED 08/02/2024 10:28 PM GRAIN UNLOADER MACHINE PSA SCREEN New Adm-Reg 05/19/2017 2:53 PM CDT from Last 3 Months or Most Recently Relevant to Health Maintenance Results * CT Chest Abdomen Pelvis WO Contrast (08/02/2024 10:28 PM GRAIN UNLOADER MACHINE) Anatomical Region Laterality Modality Body N/A Computed Tomogra phy 08/02/2024 10:4 8 PM GRAIN UNLOADER MACHINE Narrative 08/02/2024 11:09 PM GRAIN UNLOADER MACHINE EXAM DESCRIPTION: CT HEAD WO CONTRAST; CT CHEST ABDOMEN PELVIS WO CONTRAST REASON FOR STUDY: Headache, no red flags complaint of vision problems x 3 weeks. States he cannot see well. Hx Diabetic. ; Weight loss, unintended complaint of vision problems x 3 weeks. States he cannot see well. Hx Diabetic. Generalized weakness, unintended weight loss unknown amount TECHNIQUE: Axial images acquired through the brain without intravenous contrast. Images stored on PACS. Automated exposure control was used as a dose optimization technique for this examination. Axial images acquired through the chest, abdomen, and pelvis without intravenous contrast. Images stored on PACS. Automated exposure control was used as a dose optimization technique for this examination. COMPARISON: None available FINDINGS: Head: BRAIN: No hemorrhage, edema or mass effect. No recent infarct. Nonspecific periventricular and subcortical white matter hypoattenuation which can be seen as sequela of chronic small vessel ischemic disease. There is mild age-appropriate cerebral volume loss. No acute intraventricular hemorrhage. Basal cisterns are patent. There is mild age-appropriate cerebellar volume loss. No midline shift. EXTRA-AXIAL SPACES: No fluid collections. No masses. CALVARIUM: No fracture. SINUSES/MASTOIDS: Mucosal thickening of the ethmoid air cells and bilateral maxillary sinuses. Otherwise, no fluid or mucosal thickening. ORBITS: No significant abnormality. OTHER: No other significant abnormality. Chest, abdomen, and pelvis: No supraclavicular, axillary, mediastinal, or hilar lymphadenopathy. Imaged portions of the thyroid gland are normal. There is no aortic aneurysm. There is normal size of the main pulmonary arteries. Heart size is normal. Small volume pericardial fluid is present. Coronary artery atherosclerotic calcifications are present. The esophagus is within normal limits. No pneumomediastinum or mediastinal hematoma. No pleural effusion or pneumothorax. Mild scattered bilateral pulmonary parenchymal scarring as well as subsegmental atelectasis in both lungs. No pulmonary parenchymal consolidation or pulmonary edema. The tracheobronchial tree is within normal limits. Left upper lobe calcified granuloma. The liver is normal in size. No discrete focal hepatic lesions on this noncontrast CT study. The gallbladder is normal. No intra or extrahepatic biliary ductal dilatation. Calcified splenic granulomas. The spleen is normal in size. No discrete focal splenic lesions. Pancreas is normal. The adrenal glands are normal. No discrete focal renal lesions. No hydronephrosis or hydroureter. No calculi within the urinary tract. The urinary bladder is normal. Mild enlargement of the prostate gland with parenchymal calcifications. The stomach is normal. The small bowel and colon are normal in course and caliber with no evidence of obstruction or inflammation. Colonic diverticulosis. No CT evidence of acute diverticulitis. The appendix is normal. No lymphadenopathy. No free fluid or free air. Atherosclerotic calcifications of the abdominal aorta and its branches. No aneurysm. Bone windows demonstrate no acute fractures or aggressive osseous lesions. IMPRESSION: 1. No acute intracranial findings. 2. No pulmonary parenchymal consolidation. No lung masses. No intrathoracic lymphadenopathy. 3. Colonic diverticulosis. No CT evidence of acute diverticulitis. THIS IS AN ELECTRONICALLY VERIFIED FINAL REPORT 08/02/2024 11:09 PM - Electronically signed by Leland Thomson M.D. AT: AT Report ID: [id number] Reading Location: [id number] Procedure Note Leland Thomson MD - 08/02/2024 EXAM DESCRIPTION: CT HEAD WO CONTRAST; CT CHEST ABDOMEN PELVIS WO CONTRAST REASON FOR STUDY: Headache, no red flags complaint of vision problems x 3 weeks. States he cannot see well. Hx Diabetic. ; Weight loss, unintended complaint of vision problems x 3 weeks. States he cannot see well. Hx Diabetic. Generalized weakness, unintended weight loss unknown amount TECHNIQUE: Axial images acquired through the brain without intravenous contrast. Images stored on PACS. Automated exposure control was used asa dose optimization technique for this examination. Axial images acquired through the chest, abdomen, and pelvis without intravenous contrast. Images stored on PACS. Automated exposure controlwas used as a dose optimization technique for this examination. COMPARISON: None available FINDINGS: Head: BRAIN: No hemorrhage, edema or mass effect. No recent infarct.Nonspecific periventricular and subcortical white matter hypoattenuation which can beseen as sequela of chronic small vessel ischemic disease. There is mild age-appropriate cerebral volume loss. No acute intraventricularhemorrhage. Basal cisterns are patent. There is mild age-appropriate cerebellarvolume loss. No midline shift. EXTRA-AXIAL SPACES: No fluid collections. No masses. CALVARIUM: No fracture. SINUSES/MASTOIDS: Mucosal thickening of the ethmoid air cells andbilateral maxillary sinuses. Otherwise, no fluid or mucosal thickening. ORBITS: No significant abnormality. OTHER: No other significant abnormality. Chest, abdomen, and pelvis: No supraclavicular, axillary, mediastinal, or hilar lymphadenopathy. Imaged portions of the thyroid gland are normal. There is no aortic aneurysm. There is normal size of the main pulmonary arteries. Heart size is normal. Small volume pericardial fluid is present.Coronary artery atherosclerotic calcifications are present. The esophagus iswithin normal limits. No pneumomediastinum or mediastinal hematoma. No pleural effusion or pneumothorax. Mild scattered bilateral pulmonary parenchymal scarring as well as subsegmental atelectasis in both lungs. No pulmonary parenchymal consolidation or pulmonary edema. The tracheobronchial tree is withinnormal limits. Left upper lobe calcified granuloma. The liver is normal in size. No discrete focal hepatic lesions on this noncontrast CT study. The gallbladder is normal. No intra orextrahepatic biliary ductal dilatation. Calcified splenic granulomas. The spleen is normal in size. No discrete focal splenic lesions. Pancreas is normal. The adrenal glands arenormal. No discrete focal renal lesions. No hydronephrosis or hydroureter. No calculi within the urinary tract. The urinary bladder is normal. Mild enlargement of the prostate gland with parenchymal calcifications. The stomach is normal. The small bowel and colon are normal in course and caliber with no evidence of obstruction or inflammation. Colonic diverticulosis. No CT evidence of acute diverticulitis. The appendix is normal. No lymphadenopathy. No free fluid or free air. Atherosclerotic calcifications of the abdominal aorta and its branches.No aneurysm. Bone windows demonstrate no acute fractures or aggressive osseous lesions. IMPRESSION: 1. No acute intracranial findings. 2. No pulmonary parenchymal consolidation. No lung masses. Nointrathoracic lymphadenopathy. 3. Colonic diverticulosis. No CT evidence of acute diverticulitis. THIS IS AN ELECTRONICALLY VERIFIED FINAL REPORT 08/02/2024 11:09 PM - Electronically signed by Leland Thomson M.D. AT: AT Report ID: [id number] Reading Location: [place] [address] Rich Romero MD IMG CT PROCEDURES Final Res ult * PSA screen (05/19/2017 2:53 PM CDT) PSA-Total 1.11 0.10 - 4.00 ng/mL ALEXA NICOLE ([place]) Blood specimen (specimen) 05/19/2017 2:53 PM CDT 05/19/2017 6:50 PM CDT Francheska Bonds MD LAB BLOOD ORDERABLES Final Resul t ALEXA NICOLE ([place]) 1 [facility] [place] [address] from Last 3 Months or Most Recently Relevant to Health Maintenance Insurance [facility] OTHER Address: [address] [address] MEDICARE [facility] MEDICARE Care Teams Graphic Arts Instructor Relationship Specialty Start Date End Date Ace Dockery MD [address] [facility] [address] [facility] [address] [place] [address] PCP - General Family Medicine 08/02/24
--- OUTSIDE RECORDS SUMMARY | 2024-12-17 12:04 | XMS_ITS | Referral Summary ---
Author Organization [facility] Address [address] [place] [address] Care Team Providers Care Accounts Receivable Administrator Name Role Phone Ace Dockery MD Primary Care Provider [phone] Allergies No known active allergies Medications amLODIPine [...] on file Legal Sex Male 3:27 AM SEAMLESS TUBE ROLLER Gender Identity Not on file Sexual Orientation Not on file Last Filed Vital Signs Vital Sign Reading Time Taken Comments Blood Pressure 112/71 08/02/2024 10:45 PM SEAMLESS TUBE ROLLER Pulse 71 08/02/2024 10:45 PM SEAMLESS TUBE ROLLER Temperature 36.6 C (97.9 F) 08/02/2024 6:00 PM SEAMLESS TUBE ROLLER Respiratory Rate 16 08/02/2024 10:45 PM SEAMLESS TUBE ROLLER Oxygen Saturation 100% 08/02/2024 10:45 PM SEAMLESS TUBE ROLLER Inhaled Oxygen Concentration - - Weight 89.8 kg (198 lb) 08/02/2024 12:49 PM SEAMLESS TUBE ROLLER Height 180.3 cm (5' 11 ) 08/02/2024 12:49 PM SEAMLESS TUBE ROLLER Body Mass Index 27.62 08/02/2024 12:49 PM SEAMLESS TUBE ROLLER Plan of Treatment Not on file Procedures Procedure Name Priority Date/Time Associated Diagnosis Comments CT CHEST ABDOMEN PELVIS WO CONTRAST ED 08/02/2024 10:28 PM SEAMLESS TUBE ROLLER PSA SCREEN New Adm-Reg 05/19/2017 2:53 PM CDT from Last 3 Months or Most Recently Relevant to Health Maintenance Results * CT Chest Abdomen Pelvis WO Contrast (08/02/2024 10:28 PM SEAMLESS TUBE ROLLER) Anatomical Region Laterality Modality Body N/A Computed Tomogra phy 08/02/2024 10:4 8 PM SEAMLESS TUBE ROLLER Narrative 08/02/2024 11:09 PM SEAMLESS TUBE ROLLER EXAM DESCRIPTION: CT HEAD WO CONTRAST; CT [...] Leland Thomson M.D. AT: AT Report ID: [id number] Reading Location: [id number] Procedure Note Leland Thomson MD - 08/02/2024 [...] Leland Thomson M.D. AT: AT Report ID: [id number] Reading Location: [id number] [place] Rich Romero MD IMG CT PROCEDURES Final Res ult * PSA screen (05/19/2017 2:53 PM CDT) PSA-Total 1.11 0.10 - 4.00 ng/mL ALEXA NICOLE ([place]) Blood specimen (specimen) 05/19/2017 2:53 PM CDT 05/19/2017 6:50 PM CDT us Francheska Bonds MD LAB BLOOD ORDERABLES Final Resul t ALEXA NICOLE ([place]) 1 [facility] Department [place] [address] from Last 3 Months or Most Recently Relevant to Health Maintenance Insurance [facility] MEDICARE [facility] MEDICARE Care Teams Accounts Receivable Administrator Relationship Specialty Start Date End Date Ace Dockery MD [address] [place] [address] [address] [address] PCP - General Family Medicine 08/02/24
--- OUTSIDE RECORDS SUMMARY | 2024-12-17 12:04 | XMS_ITS | Encounter Summary ---
Author Organization [facility] Care Team Providers Care Custom Shoemaker Name Role Phone Ace Dockery MD Primary Care Provider [phone] Encounter Details Date Type Department Care Team (Latest Contact Info) Description 12/16/2024 Travel Social History Tobacco Use Types Packs/Day Years Used Date Smoking Tobacco: Former Cigarettes 0.3 20 Cigars Smokeless Tobacco: Never Alcohol Use Standard Drinks/Week Comments Yes 12 (1 standard drink = 0.6 oz pu re alcohol) 3-4 drinks per evening Sexually Active Control Partners Comments Not Currently Sex and Gender Information Value Date Recorded Sex Assigned at Not on file Legal Sex Male 8:50 PM CDT Gender Identity Not on file Sexual Orientation Not on file documented as of this encounter Plan of Treatment Upcoming Encounters Date Type Department Care Team (Late st Contact Info) Description 12/18/2024 9:15 AM CDT Physical Therapy [facility] [address] [place] [id number] Ace Dockery MD [address] [facility] [address] [place] [address] Francisca Snow, PT [place] 12/26/2024 11:30 AM CDT Physical Therapy [facility] [address] [place] [address] Ace Dockery MD [address] [facility] [address] [place] [address] Shana Otto, PT [place] Discharge Disposition: Discharged to home or Selfcare documented as of this encounter Visit Diagnoses Not on filedocumented in this encounter Care Teams Custom Shoemaker Relationship Specialty Start Date End Date Ace Dockery MD [address] [facility] [address] [place] [address] PCP - General Family Medicine 05/06/20 documented as of this encounter
--- OUTSIDE RECORDS SUMMARY | 2024-12-17 12:04 | XMS_ITS | Encounter Summary ---
Author Organization [facility] Address [address] [place] [address] Phone Care Team Providers Care Log Clerk Name Role Phone Ace Dockery MD Primary Care Provider [phone] Reason for Visit * PT/OT/ST (Routine) - Authorized Specialty Diagnoses / Procedures Referred By Contac t Referred To Contact Physical Therapy Diagnoses Right shoulder pain, unspecified chronicity Ace Dockery MD [address] [place] [address] [place] [address] Phone: tel: fax: [facility] at [facility] [address], [address] [place] [address] Phone: tel: fax: Referral ID Status Reason Start Date Expiration Date V isits Requested Visits Authorized [id number] Authorized 11/26/2024 50 50 Encounter Details Date Type Department Care Team (Late st Contact Info) Description 12/16/2024 8:30 AM CDT Physical Therapy [facility] [address], [address] [place] [address] Ace Dockery MD [address] [place] [address] [place] [address] Ariela Snow, PT [place] Right shoulder pain, unspecified chronicity (Primary Dx) Discharge Disposition: Discharged to home or Selfcare Social History Tobacco Use Types Packs/Day Years [...] on file documented as of this encounter Miscellaneous Notes * Plan of Care - Ariela Snow, PT - 12/16/2024 8:30 AM CDT Images from the original note were not included. Physical Therapy Visit - Electronically signed by: ARIELA SNOW, PT December 16, 2024 Subjective SUBJECTIVE: He has been trying to work on better posture but it's very difficult for him to remember that. Right shoulder abduction AROM causes 5/10 pain to start the session. He had to rake some rock over the weekend. He cannot start a critical care rn and chain saw due to this problem. Body Diagram Patient Reports: Musculoskeletal: Arms: OBJECTIVE Observation: Objective Data: Restriction palpable at right superior rhomboid/levator scapulae muscle Posture: forward head and excessive tspine kyphosis TREATMENT: Refer to [facility] Therapy flowsheet for minutes. Manual therapy: direct pressure release on right rhomboid and levator in prone He was wearing tape from last visit. Pt removed it. Educated him how and when to remove the tape but may do it next visit here. Tape right scapula into scapular retraction. Taped on both sides. Therapeutic exercises: Levator stretch, right, 1 B Foam roll stretch X 2 min, Stabilize X 2 min, With arm flexion. (Caution-lost balance) Standing 5# over head hold statically X 30 sec. The with walking X 60 sec. - did not perform today Scapular retraction while leaning at a table AKA dumbbell bent over rows or critical care rn pulls) X10 Right only then with green band Scapular retraction in standing, green band, 10x2 Gave him green band for home. Home exercises using Tiny Pictures program: - Standing Shoulder Shrug Circles AROM Backward - 1 x daily - 7 x weekly - 3 sets - 10 reps - Seated Levator Scapulae Stretch (Mirrored) - 1 x daily - 7 x weekly - 3 sets - 10 reps - 60 se hold - Forearm Plank on Wall - 1 x daily - 7 x weekly - 3 sets - 10 reps - verbally added retractions and then critical care rn pulls with green band that therapist gave him. Many cues to avoid scapular retraction. Therapist provided Education in posture in order to put less strain on rhomboids and levator. ASSESSMENT: Patient came in with irritated symptoms today after doing some work at home over the weekend. He needs a lot of cues for posture and not overusing his levator and trapezius muscles in posture and exercises. Patient would benefit from continued skilled interventions, as stated in the plan of care, due to the following functional limitations: Decreased ability to reach over head, washing hair, dressing lifting objects, pulling lawn more cord to start it, cannot shovel without pain Preferred Language: Guatemalan All charges entered today are appropriate and separate from each other. PLAN Goals to be achieved by discharge. Patient will demonstrate the followin- Decrease right shoulder pain to 3/10 or less with functional activities to be able to reach overhead with decreased pain. 2- Improve score on the SPADI to 25% impairment or less to demonstrate overall improved function. 3- Demonstrates independence in therapeutic exercise program specific to relative impairments in order to optimize rehabilitation. 4- Pain free right shoulder ROM in all directions. This patient will likely be seen 2x/week for 6 visits from the date of initial evaluation. documented in this encounter Plan of Treatment Upcoming Encounters Date Type Department Care Team (Late st Contact Info) Description 12/18/2024 9:15 AM CDT Physical Therapy [facility] [address] [place] [id number] Ace Dockery MD [address] [place] [address] [address] [place] [address] Ariela Snow PT [place] 12/26/2024 11:30 AM CDT Physical Therapy [facility] [address] [facility], [address] [place] [address] Ace Dockery MD [address] [facility] [address] [place] [address] Shana Otto, PT [place] Discharge Disposition: Discharged to home or Selfcare documented as of this encounter Visit Diagnoses Diagnosis Right shoulder pain, unspecified chronicity- Primary documented in this encounter Care Teams Log Clerk Relationship Specialty Start Date End Date Ace Dockery MD [address] [facility] [address] [place] [address] PCP - General Family Medicine 05/06/20 documented as of this encounter
--- OUTSIDE RECORDS SUMMARY | 2024-12-17 12:04 | XMS_ITS | Encounter Summary ---
Author Organization [facility] Address [address] [facility] [address] [place] [address] Phone Care Team Providers Care Dsp Engineer Name Role Phone Unavailable Primary Care Provider Unavailabl e Reason for Visit * Reason Comments Med Refill Encounter Details Date Type Department Care Team (Late st Contact Info) Description 09/27/2021 Refill [facility] Justin. [address] [facility] [address] [place] [address] Lucio Arizmendi MD [address] [facility] [address] [place] [address] Social History Tobacco Use Types Packs/Day Years [...] as of this encounter Plan of Treatment Not on file documented as of this encounter Visit Diagnoses Not on filedocumented in this encounter
== END 2024-12-17 10:47 | disposition home or self-care (01) ==
LOC: ANHBWCAUD 10:51
PROVIDERS: PCP Family Medicine; Visit Provider Family Medicine
DX: H91.93 Unspecified hearing loss, bilateral (principal)
CPT/HCPCS: 99199

== ENCOUNTER 2024-12-24 08:26 | Outpatient (CLI) | payer MEDICARE, SELFPAY ==
--- OUTSIDE RECORDS SUMMARY | 2024-12-24 08:35 | XMS_ITS | Clinical Summary ---
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 Gender Identity Not on file Sexual Orientation Not on file Last Filed Vital Signs Vital Sign Reading Time Taken Comments Blood Pressure 112/71 08/02/2024 10:45 PM LEPIDOPTERIST Pulse 71 08/02/2024 10:45 PM LEPIDOPTERIST Temperature 36.6 C (97.9 F) 08/02/2024 6:00 PM LEPIDOPTERIST Respiratory Rate 16 08/02/2024 10:45 PM LEPIDOPTERIST Oxygen Saturation 100% 08/02/2024 10:45 PM LEPIDOPTERIST Inhaled Oxygen Concentration - - Weight 89.8 kg (198 lb) 08/02/2024 12:49 PM LEPIDOPTERIST Height 180.3 cm (5' 11 ) 08/02/2024 12:49 PM LEPIDOPTERIST Body Mass Index 27.62 08/02/2024 12:49 PM LEPIDOPTERIST Plan of Treatment Health Maintenance Due Date [...] Tdap) 12/28/202208/2013, 09/18/2012 Covid-19 Vaccine (3 - 2023- season) 2024, 10/12/2021 Influenza Vaccine (Season Ended) 2025 Abdominal Aortic Aneurysm (AAA) Screen Completed Procedures Procedure Name Priority Date/Time Associated Diagnosis Comments CT CHEST ABDOMEN PELVIS WO CONTRAST ED 08/02/2024 10:28 PM LEPIDOPTERIST PSA SCREEN New Adm-Reg 05/19/2017 2:53 PM CDT from Last 3 Months or Most Recently Relevant to Health Maintenance Results * CT Chest Abdomen Pelvis WO Contrast (08/02/2024 10:28 PM LEPIDOPTERIST) Anatomical Region Laterality Modality Body N/A Computed Tomogra phy 08/02/2024 10:4 8 PM LEPIDOPTERIST Narrative 08/02/2024 11:09 PM LEPIDOPTERIST EXAM DESCRIPTION: CT HEAD WO CONTRAST; CT [...] Leland Thomson M.D. AT: AT Report ID: [id number] Reading Location: [id number] Procedure Note Leland Thomson MD - 08/02/2024 [...] Leland Thomson M.D. AT: AT Report ID: [id number] Reading Location: [id number] Rich Romero MD IMG CT PROCEDURES Final Res ult * PSA screen (05/19/2017 2:53 PM CDT) PSA-Total 1.11 0.10 - 4.00 ng/mL ALEXA NICOLE (PIPPA) Blood specimen (specimen) 05/19/2017 2:53 PM CDT 05/19/2017 6:50 PM CDT Francheska Bonds MD LAB BLOOD ORDERABLES Final Resul t ALEXA NICOLE (PIPPA) 1 [facility] Department [place] [place] [address] from Last 3 Months or Most Recently Relevant to Health Maintenance Insurance [facility] MEDICARE [facility] MEDICARE Care Teams Phone Circuit Operator Relationship Specialty Start Date End Date Ace Dockery MD [address] [place] [address] [place] [address] PCP - General Family Medicine 08/02/24
--- OUTSIDE RECORDS SUMMARY | 2024-12-24 08:35 | XMS_ITS | Clinical Summary ---
Author Organization [facility] Address [address] [place] [address] Phone Care Team Providers Care Clinical Laboratory Aide Name Role Phone Ace Dockery MD Primary Care Provider [phone] Allergies No known active allergies Medications pravastatin [...] by mouth 2 times daily. 7 Active Buckhorn-3 Fatty Acids (FISH OIL PO) Take 1 [...] Encounters Date Type Department Care Team Description 12/18/2024 9:15 AM CDT Physical Therapy [facility] at [address] [place] [address] Ace Dockery MD Bogowith, Kelly A, PT Right shoulder pain, unspecified chronicity (Primary Dx) Discharge Disposition: Discharged to home or Selfcare 12/16/2024 8:30 AM CDT Physical Therapy [facility] at [facility] [address], [address] [place] [address] Ace Dockery MD Bogowith, Kelly A, PT Right shoulder pain, unspecified chronicity (Primary Dx) Discharge Disposition: Discharged to home or Selfcare 12/16/2024 Travel 12/13/2024 Telephone [facility] at [address], [address] [place] [address] Shana Otto, PT Appointment 12/09/2024 11:30 AM CDT Physical Therapy [facility] at [address], [address] [place] [address] Ace Dockery, Shana Haider, PT Right shoulder pain, unspecified chronicity (Primary Dx); Abnormal posture; Pain in right rhomboid muscle; Shoulder pain, unspecified chronicity, unspecified laterality Discharge Disposition: Discharged to home or Selfcare 12/09/2024 Travel 12/05/2024 3:15 PM CDT Physical Therapy [facility] at [address], [address] [place] [address] Ace Dockery, Shana Haider, PT Right shoulder pain, unspecified chronicity (Primary Dx); Abnormal posture; Pain in right rhomboid muscle; Shoulder pain, unspecified chronicity, unspecified laterality Discharge Disposition: Discharged to home or Selfcare 12/05/2024 Travel 12/02/2024 3:15 PM CDT Physical Therapy [facility] at [address], [address] [address] Ace Dockery MD Young, Susan E, PT Right shoulder pain, unspecified chronicity (Primary Dx); Abnormal posture; Pain in right rhomboid muscle; Shoulder pain, unspecified chronicity, unspecified laterality Discharge Disposition: Discharged to home or Selfcare 11/29/2024 2:45 PM CDT Physical Therapy [facility] at [address], [address] [place] [address] Ace Dockery, Shana Haider, PT Right shoulder pain, unspecified chronicity (Primary Dx); Abnormal posture Discharge Disposition: Discharged to home or Selfcare 11/29/2024 Plan of Care Documentation [facility] at [facility] [address], [address] [place] [address] 11/29/2024 Travel 11/26/2024 Transcribe Orders [facility] [address] [place] [address] Ace Dockery MD Right shoulder pain, unspecified [...] Care Team (Late st Contact Info) Description 12/26/2024 11:30 AM CDT Physical Therapy [facility] at [facility] [address] [place] [address] Ace Dockery MD [address] [place] [address] [address] [place] [address] Shana Otto, PT [place] Discharge Disposition: Discharged to home or Selfcare Health Maintenance Due Date Last Done Comments Hepatitis C Virus (HCV) Screening 1955 Cologuard 02/02/2006 Immunochemical Fecal Occult Blood 02/02/2006 Pneumococcal Immunization (50+ years) (1 of 1 - PCV) 02/02/2006 Zoster Immunization (1 of 2) 02/02/2006 PSA Discussion 02/02/2011 Colonoscopy 03/05/2021 03/05/2018, 02/2018, 11/21/2017, Additional history exists Colorectal Cancer Screening 03/05/2021 SARS-COV-2 Immunization ( season) 2024 11/09/2021, 10/12/2021 Influenza Immunization (Season Ended) 2025 Respiratory Syncytial Virus (RSV) Immunization (Adult) (1 [...] complete this topic Insurance MEDICARE Care Teams Clinical Laboratory Aide Relationship Specialty Start Date End Date Ace Dockery MD [address] [facility] [address] [place] [address] PCP - General Family Medicine 05/06/20
--- OUTSIDE RECORDS SUMMARY | 2024-12-24 08:35 | XMS_ITS | Encounter Summary ---
Author Organization [facility] Address [address] [facility] [place] [address] Phone Care Team Providers Care Spanish Translator Name Role Phone Unavailable Primary Care Provider Unavailabl e Reason for Visit * Reason Comments Med Refill Encounter Details Date Type Department Care Team (Late st Contact Info) Description 09/27/2021 Refill [facility] Justin. [address] [facility] [address] [place] [address] Lucio Arizmendi MD [address] [facility] [address] [place] [address] Social History Tobacco Use Types [...]
--- OUTSIDE RECORDS SUMMARY | 2024-12-24 08:35 | XMS_ITS | Continuity of Care Document ---
Author Organization [facility] Pippa DECKER [address] Address [address] [facility] [address] [place] [address] Care Team Providers Care Gravel Hauler Name Role Phone ACE DOCKERY Primary Care Provider [facility] Toolroom Clerk Assessment Encounter Date Assessment Date Assessment LastModified by Organization Details LastModified Time 12/23/2024 12/23/2024 BP is elevated today because he has not yet taken his antihypertensive regimen. [email or web address] Not available 12/23/2024 10:53:26 Plan of Treatment Reminders Order Date Submit Date Provider Last Modified By Organization Details Last Modified Time Details Appointments None recorded. Lab None recorded. Referral None recorded. Procedures None recorded. Surgeries None recorded. Imaging None recorded. Medication Orders cyclobenzap rine 5 mg tablet 2024 04 025 [facility], [address], [place], [address], 10:54:37 Patient TargetsNo targets recorded. Patient InstructionsNo instructions recorded. Reason for Referral None Reported. Results Created Date Observation Date Name Description Value Unit Range Abnormal Flag Note LastModifiedBy Organization Detail LastModifiedTime 12/18/1912/17/2024 heari ng evalu ation * No observ ation record ed. [facility] - Audiology [address] [place] [address], [address], 12/17/2024 15:33:45 Result Notes None recorded. Problems Name Problem SNOMED Code Status Onset Date Resolution Date Notes Provider Name and Address Organization Details Recorded Time Body [facility] 25-29 [facility] Active 2016 Francheska [place]ado, [place] - [facility] 7 00:19:59 Proteinu maria e 10767100 Active 2016 Nephro Francheska [place], [place] - [facility] 8 01:46:07 Dizzroxy martinez 952337123 Completed 201612/08/2017 Roma [place]ado, [place] - [facility] 8 16:41:16 Injury of shoulder region 506120493 Active 2017 Francheska [place]ado[place] - [facility] 8 17:23:56 Strain of trapeziu s muscle 932802524 Completed 201702/19/2018 Francheska [place], [place] - [facility] 8 07:35:57 Rotator cuff syndrome 4283901 Active 2017 Francheska [place] [facility] 8 01:26:33 Pulmonar y hyperten juan manuel 72571454 Active 2017 Francheska [place] [facility] 8 01:53:58 Bunion 982555559 Active 2017 Francheska [place] [facility] 8 07:35:29 Pre-surg marcus testing Active 2017 Francheska [place] [facility] 8 12:17:17 Adult health examinat ion Active 2017 Francheska [place] [facility] 8 10:54:33 Cellulit is of finger of right hand 12591590795 219896 Completed 201809/19/2019 Francheska [place] [facility] 0 09:44:04 Dog bite - wound 781781624 Completed 201809/19/2019 Franches[place] [facility] 0 09:37:27 Conducti ve hearing loss 02677466 Active 2019 Francheska [place]ado[place] [facility] 0 09:41:45 Cellulit is of finger 94858817 Completed 201606/15/2017 Francheska [place]ado[place] [facility] 7 22:44:51 Tubercul osis screenin g Completed 201606/15/2017 Francheska [place]ado[place] - [facility] 7 22:44:47 Unexplai kalee weight loss 727997521 Completed 201608/15/2017 Removal Reason: DM Francheska [place]ado, [place] - [facility] 7 00:18:55 Type 2 diabetes mellitus 35683441 Active 2016 neg retinopa hty. 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 Francheska [place]ado, [place] - [facility] 8 01:45:53 [facility] hyperten juan manuel 02911627 Active 2016 Francheska [place]ado, [place] [facility] 7 22:45:38 Problem Notes None recorded. Procedures Surgical History Date Name Laterality Status Provider Name and Address Organization Details Recorded Time 5 Cerumen Removal completed India Villa [place] - [facility] 12/23/2024 10:41:05 5 Skin Tag Removal completed JARRED HEREDIA MD Attn: Accounting[address] [place], [address], [place] - [facility] 11/08/2024 15:46:20 8 Colonoscopy with biopsy completed Francheska Bonds [place] - [facility] 12/10/2017 01:48:33 Unlisted procedure shoulder completed India Villa MA [place] - [facility] 04/14/2020 10:41:37 Unlisted px foot/toes completed India Villa [place] - [facility] 04/14/2020 10:42:33 Imaging Results None recorded. Procedure Notes None recorded. Medical Equipment None [...] doxycycli ne monohydra te 100 mg capsule Take 1 capsule by mouth twice daily for 10 days 2024 active Not Available Not Available Not Avai lable cephalexi n 500 mg capsule 06/15 completed [...] t Available cyclobenz aprine 5 mg tablet Take by oral route for 30 days. active Not Available Not Available No [...] Not Available Vitamin D3 4000iu 08/21 completed daily-MT N Not Available Not Available Not Available [...] Details Last Updated DateTime 5 180.34 cm 29.3 kg/m2 59541.5 g 99 % 99 % 92 /min 16 /min 96.3 [degF] 176 mm[Hg] 103 mm[Hg] India Villa [place] - [facility] 5 10:38:53 Social History Question Answer Notes LastModified by Organizat ion Details LastModified Time Tobacco Smoking Status Former Smoker Quit 2017 India Villa MA [facility], [facility] 04/14/2020 10:39:40 Do You Have An Advance [...] Do You Have Serious Difficulty Hearing? Yes [facility] Has Hearing Aids But Doen't Wear Them Information not available 01/27/2021 What Type Of Diet Are You Following? REGULAR Information not available 01/27/2021 Which Illicit Or Recreational Drugs Have You Used? Aby wahl Information not available 05/11/2017 Do You Or [...] Anxious, Or Unable To Sleep At Night)? [id number] Information not available 01/27/2021 Do You Use [...] Organization Details LastModified Time Mother Hypertensive disorder Not available 05/10 16:35:52 Mother Hypercholest erolemia [email or web address] Not available 05/10 16:36:21 Mother Malignant tumor of lung 90 Stage 1- Sep 2024 [email or web address] Not available 10/10/2024 14:06:02 Father Malignant tumor of lung [email or web address] Not available 2016 17:10:24 Sister Malignant tumor of ovary [email or web address] Not available 04/14 10:39:01 Notes:no new changes reporte d 01/27/21, 07/26/21, 10/12/21, 04/20/23, 06/08/23, 09/07/23, 04/03/24, 08/29/24, 11/08/24, 12/23/24 Medical History No medical history recorded. Immunizations Vaccine Type Date Status Note Provider Nam e and Address Organization Details Recorded Time Tdap 12/28/2012 completed PROSPER [place], [place] - [facility] 08/29/2024 08:56:18 Hep A, adult 12/28/2012 completed PROSPER [place] [facility] 08/29/2024 08:56:18 COVID-19, mRNA, LNP-S, PF, 100 mcg/0.5mL dose or 50 mcg/0.25mL dose 10/12/2021 completed Laurita Naik [place], [place] [facility] 10/12/2021 16:52:00 COVID-19, mRNA, LNP-S, PF, 100 mcg/0.5mL dose or 50 mcg/0.25mL dose 11/09/2021 completed Laurita Naik [place], [place] [facility] 11/09/2021 12:59:36 Tdap 09/18/2012 completed Dolly Arroyo [place], [place] [facility] 05/10/2017 16:36:35 Past Encounters Encounter ID Performer Location Encounter Start Date Encounter Closed Date Diagnosis/Indication Diagnosis SNOMED-CT Code Diagnosis ICD10 Code Diagnosis Note [id number] Ace Dockery MD [place] [address] [facility] [address] [place], [place] [address] [address] 12/23/2024 10:15:24 12/23/2024 16:20:28 Impacted cerumen of bilateral ears 8447975923 440995 H61.23 after bilateral ear lavage, both ears were noted to be completely free of cerumen Pain of ri ght shoulder region 5721023897 M25.511 Health Concerns Section Related Observation LastModified by Organization Detai ls LastModified Time None Recorded Concern Status LastModified by Organization Details LastModified Time None Recorded Payers Encounter Date Sequence Insurance Name Policy Number Policy Wheat Covered Member ID Wheat Member ID Guarantor Name 12/23/2024 1 [facility] (MEDICARE REPLACEMENT HMO) Piero Zuleta [id number] Piero Zuleta Notes Date Note Type Note Provider Name and Address Organization Details Recorded Time 12/23/2024 text/html Pt presents to have his ears cleaned of ear wax. Ace Dockery MD Attn: Accounting[address] [place], [address], [place] [facility] 12/23/2024 16:20:25
--- OUTSIDE RECORDS SUMMARY | 2024-12-24 08:35 | XMS_ITS | Referral Summary ---
Author Organization [facility] Address [address] [place] [address] Care Team Providers Care Home Maker Name Role Phone Ace Dockery MD Primary Care Provider [phone] Allergies No known active allergies Medications amLODIPine [...] on file Legal Sex Male 3:27 AM [employer] Gender Identity Not on file Sexual Orientation Not on file Last Filed Vital Signs Vital Sign Reading Time Taken Comments Blood Pressure 112/71 08/02/2024 10:45 PM STATE [employer] Pulse 71 08/02/2024 10:45 PM STATE [employer] Temperature 36.6 C (97.9 F) 08/02/2024 6:00 PM STATE [employer] Respiratory Rate 16 08/02/2024 10:45 PM STATE [employer]OPER Oxygen Saturation 100% 08/02/2024 10:45 PM STATE [employer] Inhaled Oxygen Concentration - - Weight 89.8 kg (198 lb) 08/02/2024 12:49 PM STATE [employer] Height 180.3 cm (5' 11 ) 08/02/2024 12:49 PM STATE [employer] Body Mass Index 27.62 08/02/2024 12:49 PM STATE [employer]OPER Plan of Treatment Not on file Procedures Procedure Name Priority Date/Time Associated Diagnosis Comments CT CHEST ABDOMEN PELVIS WO CONTRAST ED 08/02/2024 10:28 PM STATE [employer] PSA SCREEN New Adm-Reg 05/19/2017 2:53 PM CDT from Last 3 Months or Most Recently Relevant to Health Maintenance Results * CT Chest Abdomen Pelvis WO Contrast (08/02/2024 10:28 PM STATE [employer]OOPER) Anatomical Region Laterality Modality Body N/A Computed Tomogra phy 08/02/2024 10:4 8 PM STATE [employer] Narrative 08/02/2024 11:09 PM STATE [employer]OOPER EXAM DESCRIPTION: CT HEAD WO CONTRAST; CT [...] Leland Thomson M.D. AT: AT Report ID: [id number] Reading Location: [id number] Procedure Note Leland Thomson MD - 08/02/2024 [...] Leland Thomson M.D. AT: AT Report ID: [id number] Reading Location: [id number] us Rich Romero MD IMG CT PROCEDURES Final Res ult * PSA screen (05/19/2017 2:53 PM CDT) PSA-Total 1.11 0.10 - 4.00 ng/mL [facility] Blood specimen (specimen) 05/19/2017 2:53 PM CDT 05/19/2017 6:50 PM CDT us Francheska Bonds MD LAB BLOOD ORDERABLES Final Resul t [facility] ([place] [address] [facility] Department [place] [address] from Last 3 Months or Most Recently Relevant to Health Maintenance Insurance [facility] MEDICARE [facility] [place] [address] MEDICARE Care Teams Home Maker Relationship Specialty Start Date End Date Aec Dockery MD [address] [place] [address] DR RUBI B [address] [address] PCP - General Family Medicine 08/02/24
--- OUTSIDE RECORDS SUMMARY | 2024-12-24 08:35 | XMS_ITS | Data Portability ---
Author Organization [facility] Laurie DECKER Address [address] [place] [address] Care Team Providers Care .Net Programmer Name Role Phone ACE MATHIS Primary Care Provider [facility] Commercial Hvac Service Technician Assessment Encounter Date Assessment Date Assessment LastModified by Organization Details LastModified Time 08/21/2024 08/21/2024 There remains great confusion as to which medications pt truly has and is taking. He was recommended to RTC with all his medications in tote. Not available 08/24/2024 21:25:36 08/29/2024 08/29/2024 BP is elevated because pt has not yet restarted the spironolactone already rx'd. He states that he will obtain it today from his pharmacy. [email or web address] Not available 09/03/2024 06:51:28 10/10/2024 10/10/2024 Oscar Zuleta is a 69 yr old male with a PMH of type 2 diabetes and hypertension who presents today for a follow-up appointment. His BP is within normal ranges at this visit at 122/80. He is compliant with his medications. Not available 10/10/2024 14:13:10 12/23/2024 12/23/2024 BP is elevated today because he has not yet taken his antihypertensive regimen. [email or web address] Not available 12/23/2024 10:53:26 Plan of Treatment Reminders Order Date Submit Date Provider Last Modified By Organization Details Last Modified Time Details Appointments None recorded. Lab surgical pathology study 2024 025 [facility], [address], [address], [place], [address], 5 13:24:19 CMP, serum or plasma 2024 025 [facility], [address], [address], [place], [address], 5 10:13:09 CBC w/ auto diff 2024 025 [facility], [address], [address], [place], [address], 5 10:13:12 lipid panel, serum 2024 025 [facility], [address], [address], [place], [address], 5 10:13:07 TSH, ultra-sensi tive, serum 2024 025 [facility], [address], [address], [place], [address], 5 10:13:10 HbA1c (hemoglobin A1c), blood 2023 024 [email or web address] In-Office Order, Internal Use Only DO Not Attach Compendium DO Not Attach Compendium, Do Not Delete/merge, [id number] 4 16:08:10 Referral ophthalmolo gist referral 2024 025 [facility], [address] [place], [address], 5 08:12:57 Procedures excision, skin tag (PROC) 2024 025 [email or web address] Not available 5 13:48:02 Surgeries None recorded. Imaging None recorded. Medication Orders cyclobenzap rine 5 mg tablet 2024 025 [facility], [address] [place] [address], [place], [address], 5 10:54:37 amlodipine 10 mg tablet 2024 025 [facility], [address] [place] [address], [place], [address], 5 14:19:05 carvedilol 25 mg tablet 2024 025 [facility], [address] [place] [address], [place], [address], 5 14:19:10 hydrochloro thiazide 25 mg tablet 2024 025 COUNT INCLUDES THE [id number] [facility], [address] [place] [address], [place], [address], 5 20:21:53 spironolact one 25 mg tablet 2024 025 [facility], [address] [place] [address], [place], [address], 5 14:19:09 spironolact one 25 mg tablet 2023 024 [facility], [address] [place] [address], [place], [address], 4 16:01:29 Bactrim DS 800 mg-160 mg tablet 2023 025 [facility], [address] [place] [address], [place], [address], 5 13:58:20 spironolact one 25 mg tablet 2023 024 [facility], [address] [place] [address], [place], [address], 17:17:28 Patient TargetsNo targets recorded. Patient Instructions Encounter Date Encounter Id Patient Instructions Last Modified By Organization Details Last Modified Time 08/21/2024 [id number] learning about type 2 diabetes Not available 08/21/2024 17:19:09 type 2 diabetes: care instructions Not available 08/21/2024 17:19:09 reduced vision: care instructions [email or web address] Not available 08/21/2024 17:17:15 learning about high blood pressure [email or web address] Not available 08/21/2024 17:17:15 high blood pressure: care instructions [email or web address] Not available 08/21/2024 17:17:15 learning about high blood pressure [email or web address] Not available 08/21/2024 17:17:15 08/29/2024 [id number] learning about type 2 diabetes [email or web address] Not available 08/29/2024 16:02:50 type 2 diabetes: care instructions Not available 08/29/2024 16:02:50 10/10/2024 [id number] A healthy lifestyle: care instructions Not available 10/10/2024 14:17:10 learning about type 2 diabetes [email or web address] Not available 10/10/2024 14:19:42 type 2 diabetes: care instructions [email or web address] Not available 10/10/2024 14:19:42 learning about high blood pressure [email or web address] Not available 10/10/2024 14:17:10 skin lesions: care instructions [email or web address] Not available 10/10/2024 14:24:29 11/08/2024 [id number] I was present in the clinic to discuss this patient at the time of the visit. I agree with the documented assessment and plan Lubna Erazo MD [email or web address] Not available 11/08/2024 17:00:52 Reason for Referral Commercial Hvac Service Technician Referral for Bilateral cataracts Referring Physician: Ace Mathis, Family Medicine, Encounter Date: 10/10/2024 Results Created Date Observation Date Name Description Value Unit Range Abnormal Flag Note LastModifiedBy Organization Detail LastModifiedTime 08/29/20 24 08/29/2024 HbA1c (hemo globi n A1c), blood HbA1c 7.2 Not Available In-Office Order Internal Use Only DO Not Attach Compendium DO Not Attach Compendium, Do Not Delete/merge, [id number] 08/29/2024 16:08:02 10/10/1910/11/2024 LIPID PANEL cholesterol, total 150 mg/dL 100-19 9 Not Available [facility] ([facility]) [address] [place], [address], 10/11/2024 10:13:07 10/10/19 25 10/11/2024 LIPID PANEL triglyceride s 307 mg/dL 0-149 above high normal Not Available [facility] ([facility]) [address] [place], [address], 10/11/2024 10:13:07 10/10/19 25 10/11/2024 LIPID PANEL HDL cholesterol 37 mg/dL >39 below low normal Not Available [facility] ([facility]) [address] [place], [address], 10/11/2024 10:13:07 10/10/19 25 10/11/2024 LIPID PANEL VLDL cholesterol kayleigh 49 mg/dL 5-40 above high normal Not Available [facility] ([facility]) [address] [place], [address], 10/11/2024 10:13:07 10/10/19 25 10/11/2024 LIPID PANEL LDL chol calc ([facility]) 64 mg/dL 0-99 Not Available [facility] ([facility]) [address] [place], [address], 10/11/2024 10:13:07 10/10/19 25 10/11/2024 COMP. METAB OLIC PANEL (14) glucose 150 mg/dL 70-99 above high normal Not Available [facility] ([facility]) [address] [place], [address], 10/11/2024 10:13:09 10/10/19 25 10/11/2024 COMP. METAB OLIC PANEL (14) BUN 63 mg/dL 8-27 above high normal Not Available [facility] ([facility]) [address] [place], [address], 10/11/2024 10:13:09 10/10/19 25 10/11/2024 COMP. METAB OLIC PANEL (14) creatinine 2.02 mg/dL 0.76-1 .27 above high normal Not Available [facility] ([facility]) [address] [place], [address], 10/11/2024 10:13:09 10/10/19 25 10/11/2024 COMP. METAB OLIC PANEL (14) eGFR 35 mL/mi n/1.7 3 >59 below low normal Not Available [facility] ([facility]) [address] [place], [address], 10/11/2024 10:13:09 10/10/19 25 10/11/2024 COMP. METAB OLIC PANEL (14) BUN/creatini ne ratio 31 10-24 above high normal Not Available [facility] ([facility]) [address] [place], [address], 10/11/2024 10:13:09 10/10/19 25 10/11/2024 COMP. METAB OLIC PANEL (14) sodium 135 mmol/ L 134-14 4 Not Available [facility] ([facility]) [address] [place], [address], 10/11/2024 10:13:09 10/10/19 25 10/11/2024 COMP. METAB OLIC PANEL (14) potassium 5.2 mmol/ L 3.5-5. 2 Not Available [facility] ([facility]) [address] [facility] [place], [address], 10/11/2024 10:13:09 10/10/19 25 10/11/2024 COMP. METAB OLIC PANEL (14) chloride 101 mmol/ L 96-106 Not Available [facility] ([facility] [address] [place], [address], 10/11/2024 10:13:09 10/10/19 25 10/11/2024 COMP. METAB OLIC PANEL (14) carbon dioxide, total 17 mmol/ L 20-29 below low normal Not Available [facility] ([facility]) [address] [facility], [place], [address], 10/11/2024 10:13:09 10/10/19 25 10/11/2024 COMP. METAB OLIC PANEL (14) calcium 9.9 mg/dL 8.6-10 .2 Not Available [facility] ([facility]) [address] [facility] [place], [address], 10/11/2024 10:13:09 10/10/19 25 10/11/2024 COMP. METAB OLIC PANEL (14) protein, total 7.6 g/dL 6.0-8. 5 Not Available [facility] ([facility]) [address] [facility], [place], [address], 10/11/2024 10:13:09 10/10/19 25 10/11/2024 COMP. METAB OLIC PANEL (14) albumin 4.2 g/dL 3.9-4. 9 Not Available [facility] ([facility]) [address] [place], [address], 10/11/2024 10:13:09 10/10/19 25 10/11/2024 COMP. METAB OLIC PANEL (14) globulin, total 3.4 g/dL 1.5-4. 5 Not Available [facility] ([facility]) [address] [place], [address], 10/11/2024 10:13:09 10/10/19 25 10/11/2024 COMP. METAB OLIC PANEL (14) bilirubin, total 0.3 mg/dL 0.0-1. 2 Not Available [facility] ([facility]) [address] [facility], [place], [address], 10/11/2024 10:13:09 10/10/19 25 10/11/2024 COMP. METAB OLIC PANEL (14) alkaline phosphatase 87 IU/L 44-121 Not Available [facility] [address] [place], [address], 10/11/2024 10:13:09 10/10/19 25 10/11/2024 COMP. METAB OLIC PANEL (14) AST (SGOT) 10 IU/L 0-40 Not Available [facility] ([facility]) [address] [facility] [place], [address], 10/11/2024 10:13:09 10/10/19 25 10/11/2024 COMP. METAB OLIC PANEL (14) ALT (SGPT) 13 IU/L 0-44 Not Available [facility] ([facility]) [address] [facility], [place], [address], 10/11/2024 10:13:09 10/10/19 25 10/11/2024 TSH TSH 1.750 uIU/m L 0.450- 4.500 Not Available [facility] ([facility]) [address] [facility], [place], [address], 10/11/2024 10:13:10 10/10/19 25 10/11/2024 CBC WITH DIFFE RENTI AL/PL ATELE T WBC 9.3 x10e3 /uL 3.4-10 .8 Not Available [facility] ([facility]) [address] [facility], [place], [address], 10/11/2024 10:13:11 10/10/19 25 10/11/2024 CBC WITH DIFFE RENTI AL/PL ATELE T RBC 4.49 x10e6 /uL 4.14-5 .80 Not Available [facility] ([facility]) [address] [place], [address], 10/11/2024 10:13:11 10/10/19 25 10/11/2024 CBC WITH DIFFE RENTI AL/PL ATELE T hemoglobin 13.0 g/dL 13.0-1 7.7 Not Available [facility] ([facility]) [address] [facility], [place], [address], 10/11/2024 10:13:11 10/10/19 25 10/11/2024 CBC WITH DIFFE RENTI AL/PL ATELE T hematocrit 39.1 % 37.5-5 1.0 Not Available [facility] ([facility]) [address] [facility], [place], [address], 10/11/2024 10:13:11 10/10/19 25 10/11/2024 CBC WITH DIFFE RENTI AL/PL ATELE T MCV 87 fL 79-97 Not Available [facility] ([facility]) [address] [facility], [place], [address], 10/11/2024 10:13:11 10/10/19 25 10/11/2024 CBC WITH DIFFE RENTI AL/PL ATELE T MCH 29.0 pg 26.6-3 3.0 Not Available [facility] ([facility]) [address] [facility], [place], [address], 10/11/2024 10:13:11 10/10/19 25 10/11/2024 CBC WITH DIFFE RENTI AL/PL ATELE T MCHC 33.2 g/dL 31.5-3 5.7 Not Available [facility] ([facility]) [address] [place], [address], 10/11/2024 10:13:11 10/10/19 25 10/11/2024 CBC WITH DIFFE RENTI AL/PL ATELE T RDW 12.9 % 11.6-1 5.4 Not Available [facility] ([facility]) [address] [place], [address], 10/11/2024 10:13:11 10/10/19 25 10/11/2024 CBC WITH DIFFE RENTI AL/PL ATELE T platelets 255 x10e3 /uL 150-45 0 Not Available [facility] ([facility]) [address] [facility], [place], [address], 10/11/2024 10:13:11 10/10/19 25 10/11/2024 CBC WITH DIFFE RENTI AL/PL ATELE T neutrophils 63 % notest ab. Not Available [facility] ([facility]) [address] [facility], [place], [address], 10/11/2024 10:13:11 10/10/19 25 10/11/2024 CBC WITH DIFFE RENTI AL/PL ATELE T lymphs 26 % notest ab. Not Available [facility] ([facility]) [address] [facility], [place], [address], 10/11/2024 10:13:11 10/10/19 25 10/11/2024 CBC WITH DIFFE RENTI AL/PL ATELE T monocytes 8 % notest ab. Not Available [facility] ([facility]) [address] [facility], [place], [address], 10/11/2024 10:13:11 10/10/19 25 10/11/2024 CBC WITH DIFFE RENTI AL/PL ATELE T eos 2 % notest ab. Not Available [facility] ([facility]) [address] [facility], [place], [address], 10/11/2024 10:13:11 10/10/19 25 10/11/2024 CBC WITH DIFFE RENTI AL/PL ATELE T basos 1 % notest ab. Not Available [facility] ([facility]) [address] [facility], [place], [address], 10/11/2024 10:13:11 10/10/19 25 10/11/2024 CBC WITH DIFFE RENTI AL/PL ATELE T neutrophils (absolute) 5.8 x10e3 /uL 1.4-7. 0 Not Available [facility] ([facility]) [address] [facility], [place], [address], 10/11/2024 10:13:11 10/10/19 25 10/11/2024 CBC WITH DIFFE RENTI AL/PL ATELE T lymphs (absolute) 2.5 x10e3 /uL 0.7-3. 1 Not Available [facility] ([facility]) [address] [facility], [place], [address], 10/11/2024 10:13:11 10/10/1910/11/2024 CBC WITH DIFFE RENTI AL/PL ATELE T monocytes(ab solute) 0.8 x10e3 /uL 0.1-0. 9 Not Available [facility] ([facility]) [address] [facility], [place], [address], 10/11/2024 10:13:11 10/10/19 25 10/11/2024 CBC WITH DIFFE RENTI AL/PL ATELE T eos (absolute) 0.2 x10e3 /uL 0.0-0. 4 Not Available [facility] ([facility]) [address] [facility], [place], [address], 10/11/2024 10:13:11 10/10/19 25 10/11/2024 CBC WITH DIFFE RENTI AL/PL ATELE T baso (absolute) 0.1 x10e3 /uL 0.0-0. 2 Not Available [facility] ([facility]) [address] [facility], [place], [address], 10/11/2024 10:13:11 10/10/19 25 10/11/2024 CBC WITH DIFFE RENTI AL/PL ATELE T immature granulocytes 0 % notest ab. Not Available [facility] ([facility]) [address] [facility], [place], [address], 10/11/2024 10:13:11 10/10/19 25 10/11/2024 CBC WITH DIFFE RENTI AL/PL ATELE T immature grans (abs) 0.0 x10e3 /uL 0.0-0. 1 Not Available [facility] ([facility]) [address] [facility], [place], [address], 10/11/2024 10:13:11 11/08/19 25 11/14/2024 PATHO LOGY REPOR T . COMMEN T Mater ial submi tted: . PART A: thigh - LEFT MEDIA L THIGH . Modif iers: left, media l PART B: thigh - LEFT MEDIA L THIGH . Modif iers: left, media l PART C: thigh - LEFT MEDIA L THIGH . Modif iers: left, media l Not Available [facility] ([facility]) [address] [facility], [place], [address], 11/14/2024 13:24:19 11/08/19 25 11/14/2024 PATHO LOGY REPOR T . COMMEN T Clini ngoc provi ded ICD-1 0: L91.8 Not Available [facility] ([facility]) [address] [facility], [place], [address], 11/14/2024 13:24:19 11/08/19 25 11/14/2024 PATHO LOGY REPOR T . COMMEN T Diagn osis: A. IRRIT ATED FIBRO EPITH ELIAL POLYP . B. IRRIT ATED FIBRO EPITH ELIAL POLYP . C. IRRIT ATED FIBRO EPITH ELIAL POLYP . BXS 11/14 1023 Local Not Available [facility] ([facility]) [address] [facility], [place], [address], 11/14/2024 13:24:19 11/08/1911/14/2024 PATHO LOGY REPOR T . COMMEN T Elect jason rodriguez d: . El cao MD, [place] topat holog ist Not Available [facility] ([facility]) [address] [facility], [place], [address], 11/14/2024 13:24:19 11/08/1911/14/2024 PATHO LOGY REPOR T [...] RT 11/12 1128 Local Not Available [facility] ([facility]) [address] [facility], [place], [address], 11/14/2024 13:24:19 11/08/1911/14/2024 PATHO LOGY REPOR T . COMMEN T Patho logis t provi ded ICD-1 0: L91.9 Not Available [facility] ([facility]) [address] [facility], [place], [address], 11/14/2024 13:24:19 11/08/19 25 11/14/2024 PATHO LOGY SONA T . COMMJERRI T CPT . 11022 1, 35712 2, 83203 3 Not Available [facility] ([facility]) [address] [facility], [place], [address], 11/14/2024 13:24:19 12/18/19 25 12/17/2024 heari ng evalu ation * No observ ation record ed. [facility] - Audiology [address] [place] [address], [address], 12/17/2024 15:33:45 Result Notes None recorded. Problems Name Problem SNOMED Code Status Onset Date Resolution Date Notes Provider Name and Address Organization Details Recorded Time [facility] Active 2016 Francheska corado [place] - [facility] 7 00:19:59 Proteinu maria e 14112870 Active 2016 Nephro Franc[place] [facility] 8 01:46:07 Dizzy spells 246220929 Completed 201612/08/2017 Roma [place] [facility] 8 16:41:16 Injury of shoulder region 141527300 Active 2017 Franc[place] [facility] 8 17:23:56 Strain of trapeziu s muscle 111591541 Completed 201702/19/2018 Franc[place] [facility] 8 07:35:57 Rotator cuff syndrome 5498310 Active 2017 [place] [facility] 8 01:26:33 Pulmonar y hyperten juan manuel 02555669 Active 2017 Franc[place] [facility] 8 01:53:58 Bunion 160419790 Active 2017 [place] [facility] 8 07:35:29 Pre-surg marcus testing Active 2017 [place] [facility] [place] 12:17:17 Adult health examinat ion Active 2017 Francheska corado, [facility] 8 10:54:33 Cellulit is of finger of right hand 37076043711 098454 Completed 201809/19/2019 Franc[place] [facility] 0 09:44:04 Dog bite - wound 907994179 Completed 201809/19/2019 [place] 0 09:37:27 Conducti ve hearing loss 00366550 Active 2019 Franc[place] [facility] 0 09:41:45 Cellulit is of finger 38096235 Completed 201606/15/2017 [place] [facility] 7 22:44:51 Tubercul osis screenin g Completed 201606/15/2017 [place] [facility] 7 22:44:47 Unexplai kalee weight loss 051569201 Completed 201608/15/2017 Removal Reason: DM Francheska corado, - [facility] 7 00:18:55 Type 2 diabetes mellitus 00248796 Active 2016 neg retinopa hty. Has cataract [place] [facility] 8 01:27:18 Hypertri glycerid emia 122036208 Active 2016 Franches[place] [facility] [place] 14:22:07 Foot joint pain 420579120 Completed 201608/15/2017 Removal Reason: resolved , med side effect Francheska corado, [facility] 7 00:19:06 Blurring of visual image 800180031 Completed 201612/10/2017 Saw eye doc - wnl. Francheska corado, [facility] 8 01:45:53 [facility] hyperten juan manuel 35785822 Active 2016 Francheska corado, [facility] 7 22:45:38 Problem Notes None recorded. Procedures Surgical History Date Name Laterality Status Provider Name and Address Organization Details Recorded Time 5 Cerumen Removal completed India Villa MA [facility] 12/23/2024 10:41:05 5 Skin Tag Removal completed JARRED HEREDIA MD Attn: Accounting,[address] [facility], [place], [address], [facility] 11/08/2024 15:46:20 8 Colonoscopy with biopsy completed Francheska Freemanang [facility] 12/10/2017 01:48:33 Unlisted procedure shoulder completed India Villa MA [facility] 04/14/2020 10:41:37 Unlisted px foot/toes completed India Villa MA [facility] 04/14/2020 10:42:33 Imaging Results Imaging Date Name Status LastModified by Organiz ation Details LastModified Time 12/17/2024 hearing evaluation* completed [facility] - Audiology [address] [place], [address], 12/17/2024 15:33:45 Procedure Notes None recorded. Medical Equipment None [...] active Not Available Not Available Not Avai avni carvedilo l 6.25 mg tablet 07/31 completed [...] PRN Not Available Not Available Not Avai labsebastián ondansetr on 4 mg disintegr ating tablet [...] Not Available Vitamin D3 4000iu 08/21 completed daily-WA N Not Available Not Available Not Available [...] Updated DateTime 4 180.34 cm 28.3 kg/m2 28273.6 1 g 95 % 95 % 86 /min 18 /min 97.5 [degF] 151 mm[Hg] 101 mm[Hg] ERIK Moreland [place] - [facility] 4 16:57:28 Date Recorded Body height Body mass index (BMI) Body weight Oxygen saturation Oxygen saturation in Arterial blood by Pulse oximetry Heart rate Respiratory rate Body temperature Systolic blood pressure Diastolic blood pressure Provider Name and Address Organization Details Last Updated DateTime 4 180.34 cm 28.7 kg/m2 99931.8 9 g 97 % 97 % 85 /min 16 /min 97.3 [degF] 167 mm[Hg] 105 mm[Hg] India Villa [place] - [facility] 4 15:33:25 Date Recorded Body height Body mass index (BMI) Body weight Heart rate Respiratory rate Body temperature Systolic blood pressure Diastolic blood pressure Provider Name and Address Organization Details Last Updated DateTime 5 180.34 cm 28.9 kg/m2 61637.4 2 g 76 /min 16 /min 96 [degF] 122 mm[Hg] 80 mm[Hg] India Villa MA [facility] 5 14:02:38 Date Recorded Oxygen saturation Oxygen saturation in Arterial blood by Pulse oximetry Provider Name and Address Organization Details Last Updated DateTime 10/10/2024 92 % 92 % Ace Mathis MD Attn: Accounting,[address] [place], [address], [facility] 10/15/2024 10:32:56 Date Recorded Body height Body temperature Respiratory rate Heart rate Systolic blood pressure Diastolic blood pressure Provider Name and Address Organization Details Last Updated DateTime 5 180.34 cm 97.8 [degF] 16 /min 79 /min 165 mm[Hg] 99 mm[Hg] Ramez Hutchison MA [facility] 5 14:32:28 Date Recorded Body height Body mass index (BMI) Body weight Oxygen saturation Oxygen saturation in Arterial blood by Pulse oximetry Heart rate Respiratory rate Body temperature Systolic blood pressure Diastolic blood pressure Provider Name and Address Organization Details Last Updated DateTime 5 180.34 cm 29.3 kg/m2 02357.5 g 99 % 99 % 92 /min 16 /min 96.3 [degF] 176 mm[Hg] 103 mm[Hg] India Villa MA [facility] 5 10:38:53 Social History Question Answer Notes LastModified by Organizat ion Details LastModified Time Tobacco Smoking Status Former Smoker Quit 2017 India Villa MA null, [facility] 04/14/2020 10:39:40 Do You Have An Advance [...] Do You Have Serious Difficulty Hearing? Yes [facility]- Has Hearing Aids But Doen't Wear Them [...] Anxious, Or Unable To Sleep At Night)? [id number] Information not available 01/27/2021 Do You Use [...] Organization Details LastModified Time Mother Hypertensive disorder [email or web address] Not available 05/10 16:35:52 Mother Hypercholest erolemia [email or web address] Not available 05/10 16:36:21 Mother Malignant tumor [...] 08:56:18 Hep A, adult 12/28/2012 completed Francisca Roman [place], [place] [facility] 08/29/2024 08:56:18 COVID-19, mRNA, LNP-S, PF, 100 mcg/0.5mL dose or 50 mcg/0.25mL dose 10/12/2021 liseth Na[place] [facility] 10/12/2021 16:52:00 COVID-19, mRNA, LNP-S, PF, 100 mcg/0.5mL dose or 50 mcg/0.25mL dose 11/09/2021 [place]PER [place] [facility] 11/09/2021 12:59:36 Tdap 09/18/2012 [place] Jj[place] [facility] 05/10/2017 16:36:35 Past Encounters Encounter ID Performer Location Encounter Start Date Encounter Closed Date Diagnosis/Indication Diagnosis SNOMED-CT Code Diagnosis ICD10 Code Diagnosis Note [id number] Francheska Torres ([facility]) [address] [place] [address] 05/10/2017 16:30:21 05/12/2017 10:39:21 Unexplained weight loss 824415442 R63.4 43 pounds in 5 months. I [...] c, pt understood . Tuberculos is screening 612404937 Z11.1 TB skin test, hx of travel and hx of weight loss. Cellulitis of finger 275 [address]644 L03.012 Stop Keflex. Restart Bactrim. Advised on compliance . [id number] Francheska Torres ([facility]) [address] [place] [address] 06/15/2017 16:24:34 06/19/2017 11:30:03 Foot joint pain 867865942 M79.672 Left first metatarsal . He is on HCTZ which is not favorable if he has gout. Exam unremarkab le today. We will check for uric acid level. Hypertriglyceridemia 302 607646 E78.1 We increased Pravastati n from 20mg daily to 40mg daily plus strict diet - he is trying to follow diabetes diet I recommende d as he declined nutritioni st referral. TG was 1100's, non-fastin g. Repeating lipid test today. Continue Pravastati n 40mg as tolerated. Type 2 layla betes mellitus 73353590 E11.29 05/23/2017: A1C of 16, UA showed [...] letal aches). Blurring o f visual image 691021562 H53.8 Likely due to significan t drop in glucose. We are adjusting DM meds. Advised pt to have a dilated eye exam with eye doctor - he voiced understand ing. Unexplaine d weight loss 545834241 R63.4 43 pounds in 5 months. I [...] to discuss about management . Essential hypertension 34814346 I10 Blood pressure wnl today. Continue same regimen. Consider cutting down Amlodipine next visit. [id number] [facility] (Fam Med) [address] [place] [address] 08/15/2017 16:06:28 08/16/2017 10:53:20 Type 2 diabetes mellitus 36560218 E11.29 A1C = 16 on 05/19/2017 . Random glucose in clinic is 114 today, improved. Will switch metformin 850 TID to ER 2000mg daily. Continue glipizide 20 mg daily. We will check A1c today, Possible proteinuri a. Evaluate with microalbum inuria. Continue aspirin and statin. RTC in 1 mo. Advised patient began to see ophthalmol ogist. Body mass index 25-29 - overweight 502018222 Z68.28 continue weight gain, which could be due to his better controlled diabetes. Encouraged tighter lifestyle management . Hypertriglyceridemia 302 254444 E78.[address] referral. Triglyceri de improved from 1100 to 800 on pravastati n. Encourage patient to increase pravastati n to 40 mg total a day, add fish oil. We will check his triglyceri de today - Consider Fenofibrat e. Blurring o f visual image 367590830 H53.8 Likely due to significan t drop in glucose. We are adjusting DM meds. Advised pt to have a dilated eye exam with eye doctor - he voiced understand ing. 08/15/2017 : Advised pt again the importance of seeing eye doctor. Essential hypertension 21487869 I10 BP wnl. Continue Amlodipine , Benazepril , HCTZ. [id number] Franc[facility]ka [facility] ([facility]) [address] [place] [address] 09/13/2017 16:18:41 09/19/2017 13:14:24 Type 2 diabetes mellitus 52108511 E11.29 A1C = 16 ( 7) improved to 7.2 on 08/15/2017 . Microalbum inuria pending nephrology . Pt is on Metformin ER 2000mg daily (we dec from 850mg TID). Continue aspirin and statin. Given pt glucometer to check his sugar as needed with dizzy spells. Consider lowering his Metformin (diarrhea) +/- inc Glipizide next visit. Dizzy spells 649170034 R 42 Hx suggests likely Vertigo vs. [...] hasn't seen eye doctor yet. Hypertriglyceridemia 302 010063 E78.[address] referral. Triglyceri de improved from 1100 to 800 on pravastati n. Pt is on Pravastati n 40mg with fish oil for one month. We will recheck TG level. Essential hypertension 40548373 I10 Blood pressure was uncontroll ed last nurse visit. Per pt, was feeling dizzy as well. BP wnl in clinic today. .Continue Amlodipine , Benazepril , HCTZ. Pt to measure BP when feeling dizzy. [id number] [facility] ([facility]) [address] [place] [address] 10/05/2017 16:35:13 10/10/2017 10:49:00 Hypertriglyceridemia 349299218 E78.1 Background : Declined nutritioni st referral. [...] will repeat in 2-3 months. Dizzy spells 532323357 R 42 Hx suggests likely Vertigo vs. [...] further episodes. Still unsure etiology. Essential hypertension 57028981 I10 Blood pressure borderline . Continue Amlodipine , Benazepril , HCTZ. We will need to adjust med if BP continues to be borderline . Type 2 layla betes mellitus 82696555 E11.29 A1C = 16 ( 7) improved to 7.2 on 08/15/2017 . Microalbum inuria pending nephrology . Pt cut down to Metformin ER 500mg two tab daily. No further dizziness. Continue Glipizide 10mg 2 tab daily, Aspirin and statin. Recheck A1C 11/2017. [id number] [facility] ([facility]) [address] [place] [address] 11/01/2017 16:08:38 11/09/2017 11:15:42 Injury of shoulder region 252658641 S49.92XA Less than a week. 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 Exam positive for impingemen t. We will start with conservati ve management - Flexeril And Tylenol. RTC if not better. Consider PT and imaging. Strain of trapezius muscle 537520146 S46.812A left sided. Flexeril to help with recovery. [id number] [facility] ([facility]) [address] [place] [address] 12/08/2017 16:06:57 12/11/2017 10:52:59 Type 2 diabetes mellitus 62737927 E11.29 A1C = 16 ( 7) improved [...] next blood test with Nephro. Essential hypertension 91298887 I10 Blood pressure borderline . Continue Amlodipine , Benazepril , HCTZ. We will need to adjust med if BP continues to be borderline . 11/2017: ACEI was supposed to be held 09/06/2017 due to SHAUN - was refilled later, not sure if pt is on it. Cr returned wnl 11/2017. Rotator cuff syndrome 41 52751 M75.102 10/2017: Less than a week. Tree [...] shoulder and refer to PT. Hypertriglyceridemia 302 392637 E78.1 Background : Declined nutritioni st referral. [...] next blood test with Nephro. Pulmonary hypertension 98615933 I27.20 Followed by Pulmonary: Planning for PFT, CXR, ECHO, Sleep study [id number] Francheska Freemanang Jackson 14 IM [address] [facility] [place] [address] 02/15/2018 16:30:00 02/19/2018 10:57:13 Essential hypertension 97787161 I10 Blood pressure borderline . Continue Amlodipine , Benazepril , HCTZ. We will need to adjust med if BP continues to be borderline . 11/2017: ACEI was supposed to be held 09/06/2017 due to SHUAN - was refilled later, not sure if pt is on it. Cr returned wnl 11/2017. 01/2018: on Amlodipine , Benazepril , HCTZ 25mg. Will monitor. If persistent ly elevated, adjust meds. Bunion 716716740 M21.61 9 pain affecting ADL's. Refer to podiatry Impingemen t syndrome of shoulder region 323591795 M75.42 10/2017: Less than a week. Tree [...] - plan for sx 03/2018. Hypertriglyceridemia 302 831645 E78.1 Background : Declined nutritioni st referral. [...] fish oil for two weeks. Pulmonary hypertension 19913702 I27.20 Followed by Pulmonary: Planning for PFT, CXR, ECHO ( Mild MVR / mild AVR, EF 60-65%, mild LVH. Mild diastolic dysfunctio n. Small pericardia l effusion), Sleep study 01/2018: Was put on CPAP, tolerating well. Sleep well. Type 2 layla betes mellitus 67035498 E11.29 A1C = 16 ( 7) improved [...] 01/2018: A1C 6.7 - continue the same. [id number] Francheska Torres 14 [address] [facility] [address] [place], [place] [address] [address] 04/27/2018 09:26:59 05/09/2018 11:20:14 Essential hypertension 23116341 I10 Blood pressure borderline . Continue Amlodipine [...] , HCTZ 25mg. Rotator cuff syndrome 41 45564 M75.102 10/2017: Less than a week. Tree [...] Undergoing PT. Pain uncontroll ed - Tramadol. [id number] Paola Chand [place] ([facility]) [address] [place], [place] [address] [address] 06/13/2018 11:52:11 06/15/2018 10:25:01 Pyogenic granuloma 714457588 L98.0 vs atypia Skin tag 627628435 L91.8 Inflamed [id number] Francheska Torres 14 IM [address] [facility] [address] [place] [address] 07/31/2018 09:30:49 08/01/2018 13:51:35 Hypertriglyceridemia 794287936 E78.1 Background : Declined nutritioni st referral. [...] 07/2018: on Statin. Recheck level. Essential hypertension 33998539 I10 Blood pressure borderline . Continue Amlodipine [...] RTC 10/2018. Type 2 layla betes mellitus 31189304 E11.29 A1C = 16 ( 7) improved [...] daily, Glipizide 10mg 2 tab daily Bunion 951990706 M21.61 9 pain affecting ADL's. Gen sx left repaired 06/2018. Still hurting. Short term T3. Proteinuria 00250105 R80 .9 Followed by Nephro Adult heal th examination 078132329 Z00.00 Declined Flu [id number] Francheska Rubion 14 IM [address] [facility] [place] [address] 11/01/2018 09:22:10 11/01/2018 15:57:11 Hypertriglyceridemia 014726431 E78.1 Background : Declined nutritioni st referral. [...] to lipitor 20mg. Rotator cuff syndrome 41 49029 M75.102 10/2017: Less than a week. Tree [...] Steroid course. Call ortho if persist pain. Bunion 181955818 M21.61 9 pain affecting ADL's. Gen sx left repaired 06/2018. Still hurting. Short term T3. Addendum: pt will gen sx about right getting repaired. Type 2 layla crystal mellitus 32475078 E11.29 A1C = 16 ( 7) improved [...] (kidney concern). Check A1C today. Essential hypertension 81874623 I10 Blood pressure borderline . Continue Amlodipine [...] 25mg, Benazepril 40mg, Amlodipine 10mg, HCTZ 25mg. [id number] Francheska Rubion 14 IM [address] [facility] [place] [address] 12/25/2018 08:45:34 12/26/2018 10:20:33 Cellulitis of finger of right hand 4831323126 0911449 L03.011 Right index - distal phalange only. Hot compress. ER if worsening. [id number] Francheska Freemanjaneth Torres 14 IM [address] [facility] [place] [address] 02/20/2019 09:42:10 02/26/2019 10:22:50 Dog bite - wound 491573124 T14.8XXA Monday. Neighbor's dog bit his right arm. Dog's vaccines uptodate. Dog was calm usually. Pt denies any AMS. 3 wounds appeared shallow and healed. Hx of repid worsening infection. Augmentin for ppx. Essential hypertension 36705824 I10 Blood pressure borderline . Continue Amlodipine [...] today. Continue same meds. Type 2 layla betes mellitus 53422365 E11.29 A1C = 16 ( 7) improved [...] is taking Glipizide 20mg once daily (misunders tookeaton quinonesio n). He is not not taking Metformin per nephrology 's caution on his kidneys. A1C first. Addendum: A1C 9.3 - worsening. Will inc Glipizde to 20mg BID and add Januvia for better control. Hypertriglyceridemia 302 984358 E78.1 Background : Declined nutritioni st referral. [...] slight improvemen t. Will add Fenofibrat e. [id number] Francheska Torres 14 IM [address] [facility] [place] [address] 06/05/2019 09:29:13 06/17/2019 19:29:28 Type 2 diabetes mellitus 12558588 E11.29 A1C = 16 ( 7) improved [...] Likely on Glipizide and Acarbose. Hypertriglyceridemia 302 535263 E78.1 Background : Declined nutritioni st referral. [...] e Body mass index 30+ - obesity 210758323 Z68.31 lifestyle [id number] Francheska Vamshi Torres 14 [address] [facility] [place] [address] 09/19/2019 08:56:10 09/20/2019 14:58:15 Hypertriglyceridemia 984081217 E78.1 Background : Declined nutritioni st referral. [...] picked up Fenofibrat e - advised to grape picker and work on diet. Essential hypertension 52244863 I10 Blood pressure borderline . Continue Amlodipine [...] , Carvedilol , Amlodipine , HCTZ. Bunion 078436689 M21.61 9 pain affecting ADL's. Gen sx left repaired 06/2018. Still hurting. Short term T3. Addendum: pt will gen sx about right getting repaired. 09/2019: Pt has to get his A1c < 8 to get surgery. Conductive hearing loss 32256318 H90.2 Saw ENT - conductive hearing loss, external ear / Acquired stenosis of both external ear canals, impacted cerumen b/l, tinnitus b/l Got hearing aid. Body mass index 25-29 - overweight 361970618 Z68.28 continue weight gain, which could be due to his better controlled diabetes. Encouraged tighter lifestyle management . Type 2 layla betes mellitus 39924578 E11.29 A1C = 16 ( 7) improved [...] will work on lifestyle changes - swimming. [id number] Francheska Torres 14 IM 4 [facility] [address] [address] 01/22/2020 08:27:45 01/23/2020 07:03:35 Adult health examination 189679612 Z00.00 Declined FluColonos copy 2018 - poor prep, small internal hemorrhoid s. Repeat in 3 years. Fiber, stool softeners Essential hypertension 81188311 I10 Blood pressure borderline . Continue Amlodipine [...] 09/2019, continue the same. Type 2 layla marah mellitus 11346497 E11.29 A1C = 16 ( 7) improved [...] Januvia. Recheck A1C in 1mo. Pulmonary hypertension 62751755 I27.20 Followed by Pulmonary: Planning for PFT, CXR, ECHO (Mild MVR / mild AVR, EF 60-65%, mild LVH. Mild diastolic dysfunctio n. Small pericardia l effusion), Sleep study 01/2018: Was put on CPAP, tolerating well. Sleep well. Hypertriglyceridemia 302 221075 E78.1 Background : Declined nutritioni st referral. [...] picked up Fenofibrat e - advised to grape picker and work on diet. 01/2020: Per refill history, he is taking fenofibrat e and statin. Bunion 393802485 M21.61 9 pain affecting ADL's. Gen sx left repaired 06/2018. Still hurting. Short term T3. Addendum: pt will gen sx about right getting repaired. 09/2019: Pt has to get his A1c < 8 to get surgery. 01/2020: A1C was 7.7 in 11/2019 by Kendrick nurse per patient. Pt will call podiatry for surgery Rotator cuff syndrome 41 28793 M75.102 10/2017: Less than a week. Tree [...] Steroid course. Call ortho if persist pain. [id number] MD Pippa Salas 14 IM [address] [facility] [place] [address] 04/14/2020 08:51:13 04/16/2020 14:11:42 Type 2 diabetes mellitus 88563548 E11.9 recent HgbA1c was 10.8 on March 26, 2020 Essential hypertension 32344995 I10 Obesity 871387136 E66.9 Under care of sample dye mixer 046713560 Z76.[address] Arizmendi [id number] MD Pippa Salas 14 IM [address] [facility] [place] [address] 01/27/2021 10:50:00 01/29/2021 14:29:51 Pain in hallux 346958758 M79.671 Type 2 layla betes mellitus 81288232 E11.9 recent HgbA1c was 7.6 Lesion of skin of face 1378011872 06 L98.9 Under care of sample dye mixer 202829975 Z76.[address] Arizmendi Screening for malignant neoplasm of colon 763735358 Z12.11 pt is due for another colonoscop y as of Obesity 406814352 E66.9 Essential hypertension 39377774 I10 [id number] MD Pippa Salas 14 IM [address] [facility] [place] [address] 07/26/2021 09:54:12 07/30/2021 13:59:58 Type 2 diabetes mellitus 41306376 E11.9 Essential hypertension 71200981 I10 Ex-smoker 8925453 Z87.89 1 Secondary erectile dysfunction 688321148 N52.39 [id number] MD Pippa Salas 14 IM [address] [facility] [address] 10/12/2021 10:03:29 10/13/2021 13:47:54 Type 2 diabetes mellitus 96069348 E11.9 Pt had been forgetting to take the evening dose of metformin but now is improving. Insomnia 106420079 G47.0 0 Dyspnea 016752124 R06.00 Essential hypertension 07460454 I10 Vitamin D deficiency 347 11032 E55.9 Ex-smoker 4084111 Z87.89 1 more than six years ago now [id number] DASHAWN Calix 14 IM [address] [facility] [place] [address] 10/12/2021 10:06:41 10/13/2021 23:43:40 Administration of SARS-CoV-2 mRNA vaccine 3792262824 Z23 [id number] DASHAWN Calix 14 IM [address] [facility] [place] [address] 11/09/2021 11:08:59 11/10/2021 13:36:59 Administration of SARS-CoV-2 mRNA vaccine 9432069138 Z23 [id number] MD Pippa Salas 14 IM [address] [facility] [place] [address] 02/21/2022 15:05:57 02/22/2022 13:49:30 Type 2 diabetes mellitus without complication 245843179 E11.9 Rotator cuff syndrome 41 59138 M75.81 Essential hypertension 06615096 I10 [id number] MD Pippa Salas 14 IM 4 [facility] [place] [address] 04/20/2023 15:36:14 04/24/2023 12:44:50 Type 2 diabetes mellitus 16032823 E11.9 Noncomplia nce with treatment 6808880 Z91.199 Screening for malignant neoplasm of prostate 697693698 Z12.5 [id number] MD Pippa Salas 14 IM 4 [facility] [place] [address] 06/08/2023 14:55:54 06/09/2023 14:38:51 Overweight 317567256 E66.3 Type 2 layla betes mellitus 09167278 E11.9 Screening for malignant neoplasm of prostate 769866322 Z12.5 Essential hypertension 61600489 I10 [id number] MD Pippa Salas 14 IM [address] [facility] [place] [address] 09/07/2023 13:43:03 09/12/2023 08:54:18 Obesity 408342236 E66.9 Type 2 layla betes mellitus 92097562 E11.9 HgbA1c continues to improve! Vitamin D deficiency 347 31427 E55.9 Low back pain 523295049 M54.50 [id number] BLANE GUPTA- Pippa 14 IM [address] [facility] [place] [address] 03/18/2024 16:36:30 04/22/2024 13:04:43 Scapulalgia 14634809 M25.519 -Patient reports pain with flexion, extension, and abduction of right shoulder join. Spasticity of right trapezius noted on exam. -Patient has been taking 2 650mg tylenol and T#3 at the same time. Patient has also been taking cyclobenza isac 3 pills at once. SCHOOL NURSE provided extensive education on appropriat e dosing of tylenol and cyclobenza isac with the patient.-P atient agreeable to symptom management with Meloxicam 7.5mg daily PRN. SCHOOL NURSE advised patient to avoid any other NSAID therapy while on meloxicam. SCHOOL NURSE discussed risks of NSAID therapy including gastritis, CKD, and hypertensi on.-Patien t agreeable to PT-Patient declined x ray of shoulder.- Patient to follow up with Dr. Mathis for further care.-SCHOOL NURSE provided instructio nal handouts on shoulder pain to the patient. Type 2 layla betes mellitus 22254912 E11.9 -A1c: 9.4% (03/18/24)-P atient reports he has not been taking ozempic consistent ly. Patient reports he recently refilled.- Patient reports he is taking jardiance 10mg daily, glipizide ER 20mg daily-Ashleigh ent reports metformin is on hold.-Ashleigh ent declined adjustment in medication therapy.-P atient to follow up with Dr. Mathis April 03-Recom mended diabetic diet-Educa alan to check feet daily. [id number] MD Pippa Salas 14 IM [address] [facility] [place] [address] 04/03/2024 09:48:42 04/08/2024 11:34:30 Essential hypertension 50509328 I10 Scapulalgia 14439611 M25 .519 Type 2 layla betes mellitus 22662839 E11.9 Pt restarted ozempic in February 2024 [id number] MD Pippa Salas 14 IM [address] [facility] [place] [address] 04/18/2024 09:50:04 04/23/2024 10:38:53 Overweight 837927937 E66.3 Essential hypertension 33277323 I10 [id number] MD Pippa Salas 14 IM [address] [facility] [place] [address] 08/21/2024 16:37:24 08/27/2024 09:53:23 Essential hypertension 14401791 I10 Visual impairment 120642 003 H54.7 Benign ess ential hypertension 8612571 I10 Type 2 layla betes mellitus 63064674 E11.9 Pt restarted ozempic in February 2024 Pilonidal abscess 883475 008 L05.01 [id number] MD Pippa Salas 14 IM [address] [facility] [place] [address] 08/29/2024 15:05:50 09/04/2024 13:44:40 Benign essential hypertension 5304969 I10 Type 2 layla betes mellitus 40029010 E11.9 Pt restarted ozempic in February 2024; HgbA1c continues to improve, now at 7.2! [id number] MD Pippa Salas 14 IM [address] [facility] [place] [address] 10/10/2024 13:50:26 10/15/2024 14:21:42 Overweight 814192041 E66.3 BMI=28.9 Essential hypertension 70201442 I10 Type 2 layla betes mellitus 84542987 E11.9 Bilateral cataracts 9572 2004 H26.9 Skin lesion 06055972 L98 .9 [id number] MD Pippa Mcmahan 14 IM [address] [facility] [place] [address] 11/08/2024 14:12:41 11/11/2024 14:51:07 Multiple skin tags 634105896 L91.8 69 y/o male w/ 3 skin tags located on medial left thigh. Skin tags were excised and collected for pathology. No complicati ons during procedure. Plan: Follow up in 2 weeks to evaluate for healing and review pathology reports [id number] MD Joanne Salasn 14 IM [address] [facility] [place] [address] 12/23/2024 10:15:24 12/23/2024 16:20:28 Impacted cerumen of bilateral ears 1906836384 684216 H61.23 after bilateral ear lavage, both ears were noted to be completely free of cerumen Pain of ri ght shoulder region 0453532509 M25.511 Health Concerns Section Related Observation LastModified by Organization Detai ls LastModified Time None Recorded Concern Status LastModified by Organization Details LastModified Time None Recorded Advance Directives Directive N: Payers Encounter Date Sequence Insurance Name Policy Number Policy Wheat Covered Member ID Wheat Member ID Guarantor Name 08/29/2024 2 [place] Piero Zuleta [id number] Piero Zuleta 10/10/2024 2 [place] Piero Zuleta [id number] Piero Zuleta 11/08/2024 2 [place] Piero Zuleta [id number] Piero Zuleta 12/23/2024 1 [facility] (MEDICARE REPLACEMENT HMO) Piero Zuleta [id number] Piero Zuleta Notes Date Note Type Note Provider Name and Address Organization Details Recorded Time 08/21/2024 text/html Pt presents afte r a recent ER visit. He remains a poor historian, and it is not clear which medications he is taking. The ER physician gave him the recommendation to stop certain medications but that recommendation was based upon a patient list of medications that was not UTD. Ace Mathis MD Attn: [address] [place], [address], [place] [facility] 08/24/2024 21:26:15 08/29/2024 text/html Per intake note, pt presents with the goal of clarifying which medications that he should take. Ace Mathis MD Attn: Accounting[address] [facility], [place], [address], [facility] 09/03/2024 06:53:26 10/10/2024 text/html Oscar Zuleta is a 69 yr old male with a PMH of type 2 diabetes and hypertension who presents today for a follow-up appointment. His BP is within normal ranges at this visit at 122/80. He is compliant with his medications. Ace Mathis MD Attn: Accounting[address] [facility], [place], [address], [facility] 10/15/2024 10:33:30 11/08/2024 text/html 69 [...] concerns. Lubna Erazo MD Attn: Accounting,[address] [facility], [place], [address], [facility] 11/08/2024 17:05:42 12/23/2024 text/html Pt presents to william his ears cleaned of ear wax. Ace Mathis MD Attn: Accounting[address] [facility], [place], [address], [facility] 12/23/2024 16:20:25
--- OUTSIDE RECORDS SUMMARY | 2024-12-24 08:35 | XMS_ITS | Clinical Summary ---
Author Organization [facility] Facility Address [address] [place] [address] Care Team Providers Care Dental Associate Name Role Phone Unavailable Primary Care Provider [...] Comments Blood Pressure 164/98 07/26/2018 11:00 AM MACHINE BUNCH MAKER Pulse 93 07/26/2018 11:00 AM MACHINE BUNCH MAKER Temperature - - Respiratory Rate 16 06/11/2018 11:00 AM CDT Oxygen Saturation 99% 07/26/2018 11:00 AM MACHINE BUNCH MAKER Inhaled Oxygen Concentration - - Weight 101 kg (222 lb 8 oz) 07/26/2018 11:00 AM MACHINE BUNCH MAKER Height 180.3 cm (5' 11 ) 07/26/2018 11:00 AM MACHINE BUNCH MAKER Body Mass Index 31.03 07/26/2018 11:00 AM MACHINE BUNCH MAKER Plan of Treatment Health Maintenance Due Date Last Done Comments Pneumococcal Vaccine: 65+ Ye ars (1 of 2 - PCV) 02[birth year]02/1962 Colorectal Cancer Screening: Annual FOBT 02/02/2005 Colorectal Cancer Screening: Colonoscopy 02/02/2005 Colorectal Cancer Screening: Sigmoidoscopy 02/02/2005 Diabetes: Hemoglobin A1C 12/08/2019 Diabetes: Ophthalmology Exam 12/08/2019 Diabetes: Pedal Pulse Checked 12/08/2019 Diabetes: Sensory Foot Exam 12/08/2019 Diabetes: Visual Foot Exam 12/08/2019 Influenza Vaccine (Season Ended) 2025 Hepatitis B Vaccine Aged Out No longe r eligible based on patient's age to complete this topic
== END 2024-12-24 08:27 | disposition home or self-care (01) ==
LOC: ANHBWCAUD 08:27
PROVIDERS: PCP Family Medicine; Visit Provider Family Medicine
DX: H90.3 Sensorineural hearing loss, bilateral (principal)
CPT/HCPCS: 92557; 92567